=== PATIENT | female | born 1975 | race African-American/Black ===

== ENCOUNTER → 2017-06-05 | Day surgery (SDC) | payer OTHER | END | disposition home or self-care (01) | LOC: JRADIR 09:14 | PROVIDERS: ATTEND Family Medicine | PROC: BU12YZZ Fluoroscopy of Bilateral Fallopian Tubes using Other Contrast (ICD-10-PCS; principal; 2017-06-05) | DX: N97.9 Female infertility, unspecified (principal) | CPT/HCPCS: 58340; 74740-TC; 76000-TC; 84703; Q9967 ==

== ENCOUNTER 2018-09-25 09:00 | Emergency (ER) | payer OTHER ==
[2018-09-25 09:11] VITALS: BP 154/84; PULSE 90; TEMP 98; BMI 33.9
--- NOTE | 2018-09-25 09:26 | PDOC ---
History of Present Illness - General Chief Complaint: Vaginal Bleeding Stated Complaint: BLEEDING Time Seen by Provider: 09/25/18 09:15 History Source: Patient - History of Present Illness Timing/Duration: reports: constant Past History - Past Medical History Allergies/Adverse Reactions: Allergies Allergy/AdvReac Type Severity Reaction Status Date / Time No Known Allergies Allergy Verified 09/25/18 09:09 Home Medications: Ambulatory Orders NK [No Known Home Medication] 05/17/16 COPD: No Seizures: Yes - Immunization History Td Vaccination: Yes Immunization Up to Date: Yes - Suicide/Smoking/Psychosocial Hx Smoking Status: No Smoking History: Never smoked Have you smoked in the past 12 months: No Number of Cigarettes Smoked Daily: 0 Hx Alcohol Use: No Drug/Substance Use Hx: No Substance Use Type: None Review of Systems - Review of Systems Constitutional: No: Chills, Fever ABD/GI: No: Nausea, Vomiting, Abdominal cramping : No: Burning, Dysuria Musculoskeletal: No: Back Pain *Physical Exam - Vital Signs Last Vital Signs Temp Pulse Resp BP Pulse Ox 98.0 F 90 18 154/84 99 09/25/18 09:09 09/25/18 09:09 09/25/18 09:09 09/25/18 09:09 09/25/18 09:09 - Physical Exam General Appearance: Yes: Appropriately Dressed. No: Apparent Distress HEENT: positive: Normal Voice Neck: positive: Supple Respiratory/Chest: negative: Respiratory Distress Gastrointestinal/Abdominal: positive: Soft. negative: Tender Musculoskeletal: negative: CVA Tenderness Integumentary: positive: Dry, Warm Neurologic: positive: Fully Oriented, Alert, Normal Mood/Affect Moderate Sedation - Procedure Monitoring Vital Signs: Procedure Monitoring Vital Signs Temperature 98.0 F 09/25/18 09:09 Pulse Rate 90 09/25/18 09:09 Respiratory Rate 18 09/25/18 09:09 Blood Pressure 154/84 09/25/18 09:09 O2 Sat by Pulse Oximetry (%) 99 09/25/18 09:09 Medical Decision Making - Medical Decision Making 09/25/18 09:15 42 yo F, h/o seizures, , ~3-4 weeks by dates, here w/ vaginal spotting this am, no clots, abd pain, dysuria, n/v/f/c See exam 1st trimester bleed R/o ectopic vs spon AB vs vag bleed in nl preg -T&S -beta -UA -US 09/25/18 10:43 US w/ no e/o w/ beta of 1.1 Pt states home test last week was positive and also told that her beta in VENDING MACHINE ATTENDANT's office last week was also positive. As discussed with ED attending, will dc to follow-up with her VENDING MACHINE ATTENDANT on Thursday. Copy of labs and ultrasound given to patient. Of note, RH + and UA w/ no e/o infxn. *DC/Admit/Observation/Transfer Diagnosis at time of Disposition: Vaginal bleeding - Discharge Dispostion Disposition: HOME Condition at time of disposition: Good - Referrals - Patient Instructions Additional Instructions: Your blood test shows that you are not here and that your ultrasound did not reveal a Follow up with your VENDING MACHINE ATTENDANT on Thursday and discuss labs and further evaluation - Post Discharge Activity
[2018-09-25 10:17] LABS: URINE APPEARANCE CLOUDY; URINE BILIRUBIN NEGATIVE (<2.0 mg/dL); URINE COLOR YELLOW; URINE GLUCOSE (UA) NEGATIVE (NEGATIVE); URINE KETONE NEGATIVE (NEGATIVE); URINE LEUK ESTERASE NEGATIVE (NEGATIVE); URINE NITRITE NEGATIVE (NEGATIVE); URINE PROTEIN 2+ (NEGATIVE); URINE UROBILINOGEN NEGATIVE mg/dL (0.2-1.0)
[2018-09-25 12:19] LABS: EPI CELLS MANY /HPF (FEW); URINE MUCUS FEW
== END 2018-09-25 11:44 | disposition home or self-care (01) ==
LOC: JER 09:00
DX: N93.8 Other specified abnormal uterine and vaginal bleeding (principal); Z86.69 Personal history of other diseases of the nervous system and sense organs
CPT/HCPCS: 36415; 76817-TC; 81003; 81015; 84702; 86850; 86900; 86901; 99282-25

== ENCOUNTER 2018-12-01 21:10 | Emergency (ER) | payer OTHER ==
[2018-12-01 21:14] VITALS: BMI 34.1
--- NOTE | 2018-12-01 23:17 | PDOC ---
History of Present Illness - General Chief Complaint: Pain Stated Complaint: LEFT ARM PAIN History Source: Patient Exam Limitations: No Limitations - History of Present Illness Initial Comments: 12/01/18 23:10 43 yo F here with c/o left arm pain and also co lower abd pelvic pain. 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 states has had left upper arm , muscular pain for 3 days. worse with movement, lifting arm above 90deg. no shoulder pain no elbow pain , pain over bicep. denies f/c no cp no sob. no swelling. no injury that she recalls or trauma. also c/o lower abd / pelvic pain. pt states she had a positive home test 08/2018, then she had scant bleeding in october, and again in november. did not repeat home test. pain is crampy. no vaginal discharge. no dysuria. no other complaints. mild nausea. Past History - Past Medical History Allergies/Adverse Reactions: Allergies Allergy/AdvReac Type Severity Reaction Status Date / Time No Known Allergies Allergy Verified 12/01/18 21:14 Home Medications: Ambulatory Orders Ibuprofen 600 mg PO TID PRN #90 tablet MDD 3 12/02/18 Ibuprofen [Motrin -] 600 mg PO TID PRN #90 tablet 12/02/18 COPD: No Seizures: Yes - Immunization History Td Vaccination: Yes Immunization Up to Date: Yes - Suicide/Smoking/Psychosocial Hx Smoking Status: No Smoking History: Never smoked Have you smoked in the past 12 months: No Number of Cigarettes Smoked Daily: 0 Hx Alcohol Use: No Drug/Substance Use Hx: No Substance Use Type: None Review of Systems - Review of Systems Constitutional: No: See HPI, Chills, Diaphoresis, Fever HEENTM: No: Eye Pain, Blurred Vision Respiratory: No: Cough, Orthopnea Cardiac (ROS): No: Chest Pain, Edema ABD/GI: Yes: Nausea, Abdominal cramping, Other (abd cramping.) : No: Burning, Dysuria All Other Systems: Reviewed and Negative *Physical Exam - Vital Signs Last Vital Signs Temp Pulse Resp BP Pulse Ox 98.9 F 80 18 165/85 100 12/01/18 21:12 12/01/18 21:12 12/01/18 21:12 12/01/18 21:12 12/01/18 21:12 - Physical Exam Comments: 12/01/18 23:13 awake alert lungs clear bilaterally heart rrr no mrg abd soft mild suprapubic ttp. no rebound no guarding. no flank/ cva tenderness. ext wwp left arm ttp over lateral upper arm, and bicep. 5/5 strength bilat upper ext. sensation intact. distally radial, median, ulnar n intact. nueuro alert oriented x 3. ED Treatment Course - LABORATORY CBC & Chemistry Diagram: 12/01/18 23:20 12/01/18 23:23 - RADIOLOGY Radiology Studies Ordered: Category Date Time Status TRANSVAGINAL US PREG [US] Stat Ultrasound 12/01/18 23:06 Ordered Medical Decision Making - Medical Decision Making 12/01/18 23:14 43 yo F with positive home test 2018 , pelvic pain , mild suprapubic ttp. differential , cramps of menses, uti, ovarian cyst, plan ua tvus labs . upper ext muscle strain. tylenol. 12/02/18 01:08 test negative. tvus with bilat ovarian prominant follicles. small ff. no ovarian cyst. no or other abnormalities. labs unremarkable. ua negative for infection. will dc on motrin for left arm pain and fu with ob/ auto service representative and orthopedics. 12/02/18 02:41 xray shoulder and humerus negative. *DC/Admit/Observation/Transfer Diagnosis at time of Disposition: Arm pain - Discharge Dispostion Disposition: HOME Condition at time of disposition: Improved Decision to Admit order: No - Prescriptions Prescriptions: Ibuprofen 600 mg PO TID PRN #90 tablet MDD 3 PRN Reason: Pain Ibuprofen [Motrin -] 600 mg PO TID PRN #90 tablet PRN Reason: Pain - Referrals Referrals: Sydni Fierro NP [Primary Care Provider] - Maricarmen Waters MD [Staff Physician] - Gualberto Sarabia MD [Staff Physician] - - Patient Instructions Printed Discharge Instructions: Muscle Strain, Acute Abdominal Pain Additional Instructions: your ultrasound today is unremarkable. and normal. your labs are also all normal. your urine is negative for any infection. you can take ibuprofen 600 mg every 8 hrs as needed for pain. folllow up with a gas inspector. your test here today is negative. please return for vomiting, fever or any worsening pain or concerns. you can also follow up with an orthopedist if you continue to have pain in your arm beyond one week. - Post Discharge Activity
[2018-12-01 23:34] LABS: BASO % 0.6 % (0-2.0); EOS % 1.6 % (0-4.5); HEMATOCRIT 38.1 % (32.4-45.2); HEMOGLOBIN 12.6 GM/dL (10.7-15.3); LYMPH % 23.2 % (8-40); MCH 30.5 pg (25.7-33.7); MEAN CELL VOLUME 92.2 fl (80-96); MEAN PLT VOLUME 8.2 fl (7.5-11.1); MONO % 7.3 % (3.8-10.2); NEUT % 67.3 % (42.8-82.8); PLATELET COUNT 292 K/MM3 (134-434); RBC 4.13 M/mm3 (3.60-5.2); RDW 13.5 % (11.6-15.6); WHITE BLOOD COUNT 8.3 K/mm3 (4.0-10.0)
[2018-12-01 23:37] LABS: HCG,QUALITATIVE URINE Negative; PH,URINE 5.5 (5.0-8.0); URINE APPEARANCE CLEAR; URINE BILIRUBIN NEGATIVE (NEGATIVE); URINE COLOR YELLOW; URINE GLUCOSE (UA) NEGATIVE (NEGATIVE); URINE KETONE NEGATIVE (NEGATIVE); URINE LEUK ESTERASE NEGATIVE (NEGATIVE); URINE NITRITE NEGATIVE (NEGATIVE); URINE PROTEIN NEGATIVE (NEGATIVE); URINE UROBILINOGEN 0.2 mg/dL (0.2-1.0)
[2018-12-02 00:06] LABS: ALBUMIN 3.3 g/dl (3.4-5.0); ALK PHOS 69 U/L (45-117); ANION GAP 6 MMOL/L (8-16); BILIRUBIN,TOTAL 0.4 mg/dL (0.2-1); BLOOD UREA NITROGEN 10 mg/dL (7-18); CALCIUM 8.8 mg/dL (8.5-10.1); CHLORIDE 105 mmol/L (98-107); CO2 28 mmol/L (21-32); CREATININE 0.7 mg/dL (0.55-1.3); GLUCOSE,RANDOM 96 mg/dL (74-106); POTASSIUM 3.8 mmol/L (3.5-5.1); SGOT/AST 11 U/L (15-37); SGPT/ALT 19 U/L (13-61); SODIUM 139 mmol/L (136-145); TOT PROT 7.6 g/dl (6.4-8.2)
[2018-12-02] MEDS ORDERED: IBUPROFEN 600 MG TABLET (FP) PO ONE ×2 (01:09→01:11)
[2018-12-02 01:54] VITALS: BP 124/86; PULSE 65; TEMP 98.6
== END 2018-12-02 02:57 | disposition home or self-care (01) ==
LOC: JER 21:10
DX: M79.602 Pain in left arm (principal)
CPT/HCPCS: 36415; 73030-TC-LT-FY; 73060-TC-LT-FY; 76830-TC; 80053; 81003; 84702; 84703; 85025; 99282-25

== ENCOUNTER 2019-02-15 16:51 | Emergency (ER) | payer OTHER | END 2019-02-15 22:24 | disposition home or self-care (01) | LOC: JER 16:51 ==

== ENCOUNTER 2019-04-02 16:13 | Inpatient (IN) | payer OTHER ==
--- NOTE | 2019-04-02 17:33 | PDOC ---
History of Present Illness - General Chief Complaint: Pain, Acute Stated Complaint: ABDOMINAL PAIN Time Seen by Provider: 04/02/19 17:33 Past History - Past Medical History Allergies/Adverse Reactions: Allergies Allergy/AdvReac Type Severity Reaction Status Date / Time No Known Allergies Allergy Verified 04/02/19 16:28 Home Medications: Ambulatory Orders NK [No Known Home Medication] 04/02/19 COPD: No Seizures: Yes - Surgical History Abdominal Surgery: Yes - Immunization History Td Vaccination: Yes Immunization Up to Date: Yes - Suicide/Smoking/Psychosocial Hx Smoking Status: No Smoking History: Never smoked Have you smoked in the past 12 months: No Number of Cigarettes Smoked Daily: 0 Hx Alcohol Use: No Drug/Substance Use Hx: No Substance Use Type: None *Physical Exam - Vital Signs Last Vital Signs Temp Pulse Resp BP Pulse Ox 98.3 F 67 14 132/73 100 04/02/19 16:25 04/02/19 16:25 04/02/19 16:25 04/02/19 16:25 04/02/19 16:25 ED Treatment Course - LABORATORY CBC & Chemistry Diagram: 04/02/19 18:33 04/02/19 18:33 Medical Decision Making - Medical Decision Making 04/02/19 17:49 43 year old with a recent history of cholecysitits who presents with 8/10 stabbing periumbilical intermittent abdominal pain radiaint to hte R side of the abdomen ongoing for 2 weeks, initially improving but worse today, started at 12:30. The patinet took a Tylenol at 1330 without releif. She admits to some nausea but denies vomiting. She was previously seen in this ED for abdominal complaints approx 1.5 months ago where she was found to have cholecystits w/ cholelithiasis and was discharged with surgery f.u. She reports she was seen by surgery who wanted her to complete a course of antibiotics prior to going to the OR. She reports improvemnt of pain with antibiotics for the past week but recurrence today. Prior CTAP showed cholelithiasis and borderline GB wall thickening, equivocal for cholecystitis, patient had requested to d/c home for outpt f.u at that time ROS GENERAL/CONSTITUTIONAL: No fever or chills. No weakness. HEAD, EYES, EARS, NOSE AND THROAT: No change in vision. No ear pain or discharge. No sore throat. CARDIOVASCULAR: No chest pain or shortness of breath RESPIRATORY: No cough, wheezing, or hemoptysis. GASTROINTESTINAL: No nausea, vomiting, diarrhea or constipation. GENITOURINARY: No dysuria, frequency, or change in urination. MUSCULOSKELETAL: No joint or muscle swelling or pain. No neck or back pain. SKIN: No rash NEUROLOGIC: No headache, vertigo, loss of consciousness, or change in strength/ sensation. ENDOCRINE: No increased thirst. No abnormal weight change HEMATOLOGIC/LYMPHATIC: No anemia, easy bleeding, or history of blood clots. ALLERGIC/IMMUNOLOGIC: No hives or skin allergy. PE GENERAL: Awake, alert, and fully oriented, in no acute distress HEAD: No signs of trauma, normocephalic, atraumatic EYES: EOMI, sclera anicteric, conjunctiva clear ENT: oropharynx clear without exudates. Moist mucosa NECK: Normal ROM, supple LUNGS: No distress, speaks full sentences, clear to auscultation bilaterally HEART: Regular rate and rhythm, normal S1 and S2, no murmurs, rubs or gallops, peripheral pulses normal and equal bilaterally. ABDOMEN: Soft, + baker's + periumbilical tenderness, RLQ > LLQ tenderness. No guarding, no rebound. No masses EXTREMITIES : Normal inspection, Normal range of motion, no edema. No clubbing or cyanosis. NEUROLOGICAL: Cranial nerves II through XII grossly intact. Normal speech, normal gait, no focal sensorimotor deficits SKIN: Warm, Dry, normal turgor, no rashes or lesions noted MDM 43 year old with a recent history of cholecysitits who presents with 8/10 stabbing periumbilical intermittent abdominal pain radiaint to hte R side of the abdomen ongoing for 2 weeks, initially improving but worse today, started at 12:30. DDX including but not limited to: cholecyitis vs appendicits r/o pancreatitis r/o ovarian torsion W/U: - cbc, cmp, lipase, beta, ct abd pelvis TX: - tylenol, ivf ED Course: CT AP: acute cholecystitits Dose zosyn, Formal ABd US ordered Gen surgery Dr. Carlos arnett Case discussed with Dr. Gonzalez, agrees to admission and consult. Will see patient plan for admission Rashida Lagos, PGY2 Emergency Medicine *DC/Admit/Observation/Transfer Diagnosis at time of Disposition: Acute cholecystitis - Discharge Dispostion Condition at time of disposition: Stable Decision to Admit order: Yes - Referrals - Patient Instructions - Post Discharge Activity
[2019-04-02] MEDS ORDERED: ACETAMINOPHEN 1000 MG/100 ML VIAL (NON FORMULARY) IVPB ONE (17:53)
[2019-04-02] MEDS ORDERED: SODIUM CHLORIDE 1,000 ML IV SCH (18:00)
[2019-04-02] MEDS ORDERED: morphine CARPU-JECT 4 MG/1 ML DISP.SYRIN IVPUSH ONE (18:09)
[2019-04-02] MEDS ORDERED: morphine SULFATE 4 MG/ML VIAL ONE (18:21)
[2019-04-02] MEDS ORDERED: ACETAMINOPHEN INJECTION 100 ML IVPB ONE (18:21)
[2019-04-02] MEDS ORDERED: ONDANSETRON 4 MG/2 ML VIAL IVPUSH ONE (18:31)
[2019-04-02] MEDS ORDERED: ONDANSETRON 4 MG/2 ML VIAL ONE (18:37)
[2019-04-02 18:47] LABS: BASO % 0.6 % (0-2.0); EOS % 4.7 % (0-4.5); HEMATOCRIT 35.5 % (32.4-45.2); HEMOGLOBIN 11.8 GM/dL (10.7-15.3); MCH 30.8 pg (25.7-33.7); MCHC 33.3 g/dl (32.0-36.0); MEAN CELL VOLUME 92.5 fl (80-96); MEAN PLT VOLUME 8.6 fl (7.5-11.1); MONO % 10.5 % (3.8-10.2); NEUT % 53.2 % (42.8-82.8); PLATELET COUNT 262 K/MM3 (134-434); RBC 3.84 M/mm3 (3.60-5.2); RDW 13.8 % (11.6-15.6); WHITE BLOOD COUNT 7.5 K/mm3 (4.0-10.0)
--- NOTE | 2019-04-02 18:48 | PDOC ---
Documentation entered by Keri Villegas SCRIBE, acting as scribe for Gloria Rivera MD. Gloria Rivera MD: This documentation has been prepared by the jaymeibe, Keri Villegas SCRIBE, under my direction and personally reviewed by me in its entirety. I confirm that the documentation accurately reflects all work, treatment, procedures, and medical decision making performed by me. Attending Attestation - Resident Resident Name: Rashida Lagos - ED Attending Attestation I have performed the following: I have examined & evaluated the patient, The case was reviewed & discussed with the resident, I agree w/resident's findings & plan, Exceptions are as noted - HPI HPI: 04/02/19 18:39 Ms Nicolas is a 43 yo F who presents to the ER with a complaint of abdominal pain Pt was seen in the ER on February 15 for abdominal pain, US at that time demonstrated non specific gallbladder wall thickening with a normal CBD Pt was seen by dr Gonzalez in follow up and was told that her gall bladder was too big to be removed She was therefore started on abx which she took for a total of 10 days Pt state she was feeling better while on antibiotics but since completing the course of antibiotics, she has noted intermittent abdominal pain, despite diet modifications (no fatty, no fried foods, she is only having noodle soup, today had a bagel with nothing else) Nausea today No vomiting No diarrhea No fevers, (+) chills 04/02/19 18:43 - Physicial Exam PE: 04/02/19 18:29 GENERAL: The patient appears to be in pain ENT: Moist mucous membranes. NECK: Normal range of motion, supple LUNGS: Breath sounds equal, clear to auscultation bilaterally. No wheezes, and no crackles. HEART:Regular rate and rhythm, normal S1 and S2 without murmur, rub or gallop. ABDOMEN: Soft, tender to palpation in the right upper quadrant, lower quadrant and joe umbilical area EXTREMITIES: Normal range of motion, no edema. NEUROLOGICAL: Cranial nerves II through XII grossly intact. Normal speech. No focal neurological deficits. SKIN: Warm, Dry, normal turgor, no rashes or lesions noted. 04/02/19 18:30 04/02/19 18:46 - Medical Decision Making 04/02/19 18:47 43 yo F presenting with a complaint of abdominal pain, nausea Pt has had a prior history of biliary colic DD: biliary colic, cholecystitis, appendicitis, sbo Will do: Labs CT Analgesia IVF Antiemetics Re Assess 04/02/19 20:15 CT: Scattered groundglass opacities in the lung base may represent atelectasis. The gallbladder is hydropic with heterogeneous enhancement of the gallbladder wall a suggestion of pericholecystic fluid. No intrahepatic or significant extra hepatic ductal dilatation. Solid organs and urinary bladder within normal limits. Pelvic reproductive organs without acute abnormality. No acute abnormalities of the bowel. Appendix is normal. Postsurgical changes suggestive of prior appendectomy. IMPRESSION: Hydropic gallbladder with wall thickening/pericholecystic fluid and sludge and/or stones concerning for acute cholecystitis. Recommend right upper quadrant ultrasound for further evaluation. Will order US 04/02/19 20:16 Will order zosyn 04/02/19 22:[address] Gonzalez Pt admitted to hospitalist service 04/02/19 23:02 EKG: NSR rate of 65 bpm, axis nml, no st elevation or depressions noted, t waves upright except III *DC/Admit/Observation/Transfer Diagnosis at time of Disposition: Acute cholecystitis - Discharge Dispostion Condition at time of disposition: Stable Decision to Admit order: Yes - Referrals - Patient Instructions - Post Discharge Activity
[2019-04-02 19:15] LABS: ALBUMIN 3.2 g/dl (3.4-5.0); BILIRUBIN,TOTAL 0.3 mg/dL (0.2-1); CALCIUM 8.8 mg/dL (8.5-10.1); CREATININE 0.7 mg/dL (0.55-1.3); POTASSIUM 3.5 mmol/L (3.5-5.1); TOT PROT 6.8 g/dl (6.4-8.2)
[2019-04-02 19:19] LABS: LIPASE 104 U/L (73-393)
[2019-04-02] MEDS ORDERED: PIPERACILLIN/TAZOB 4.5 GM 4.5 GM in DEXTROSE 5%-WATER 100 ML IVPB ONE (20:16)
[2019-04-02] MEDS ORDERED: METOCLOPRAMIDE HCL INJECTION 10 MG/2 ML VIAL IVPUSH ONE (20:28)
[2019-04-02] MEDS ORDERED: PIPERACILLIN/TAZOB 4.5 GM 4.5 GM/100 ML BAG IVPB ONE (20:29)
[2019-04-02] MEDS ORDERED: METOCLOPRAMIDE HCL INJECTION 10 MG/2 ML VIAL ONE (20:30)
[2019-04-02] MEDS ORDERED: ACETAMINOPHEN 1000 MG/100 ML VIAL (NON FORMULARY) IVPB PRN (22:05)
--- NOTE | 2019-04-02 22:18 | PN ---
Teaching Attending Note Name of Resident: Vinicio Markham ATTENDING PHYSICIAN STATEMENT I saw and evaluated the patient. I reviewed the resident's note and discussed the case with the resident. I agree with the resident's findings and plan as documented. Seen and examined; please refer to resident note for further historical information. Briefly, this is a 43 y/o female presenting to the ER for abdominal pain. She is afebrile and hemodynamically stable without WBC count. VS, labs, imaging reviewed NAD, AAO, resting in bed NC AT EOMI PERRLA RRR s1/2 Lungs CTAB NT ND +BS CN2-12 wnl, no fnd EKG reviewed CXR shows Prelim CT report states suspected cholecystitis Prelim US report states GB wall thickening suspicious for cholecystitis ASSESSMENT AND PLAN: Patient presents with abdominal pain suspicious for acute cholecystitis; admitting to medicine and consulting sgjuly
[2019-04-02] MEDS: LACTATED RINGERS SOLUTION 1,000 ML/1,000 ML INFUS.BAG IV SCH (22:20)
[2019-04-02 22:27] LABS: PH,URINE 7.5 (5.0-8.0); URINE APPEARANCE CLEAR; URINE BILIRUBIN NEGATIVE (NEGATIVE); URINE COLOR YELLOW; URINE GLUCOSE (UA) NEGATIVE (NEGATIVE); URINE KETONE NEGATIVE (NEGATIVE)
[2019-04-02 22:28] LABS: URINE LEUK ESTERASE NEGATIVE (NEGATIVE); URINE NITRITE NEGATIVE (NEGATIVE); URINE PROTEIN NEGATIVE (NEGATIVE)
[2019-04-02] MEDS ORDERED: SENNOSIDES 8.6MG TABLET (FP) PO PRN (22:39)
[2019-04-02] MEDS ORDERED: ACETAMINOPHEN 325 MG TABLET (FP) PO PRN (22:39)
[2019-04-03 00:31] VITALS: BMI 32.5
[2019-04-03] MEDS ORDERED: DEXTROSE 5%-WATER 100 ML IVPB ONE ×2 (02:52→08:44)
[2019-04-03] MEDS ORDERED: PIPERACILLIN/TAZOBACTAM 4.5 GM VIAL IVPB ONE ×2 (02:52→08:44)
[2019-04-03] MEDS: PIPERACILLIN/TAZOB 4.5 GM 4.5 GM in DEXTROSE 5%-WATER 100 ML IVPB SCH ×2 (03:07→10:22)
--- NOTE | 2019-04-03 06:32 | HP ---
CHIEF COMPLAINT: RUQ abdominal pain PCP: Dr. Garcia (first name) didnt remember last name HISTORY OF PRESENT ILLNESS: This is a 43 y/o F with no PMH who presents to the ED with severe adominal pain localized to the RUQ for over a month. She saw Dr. Gonzalez 2 weeks ago for evaluation for cholecystectomy but he said it was too big to remove at that time and sent her home on abx. She does not recall the name of the abx but she did take them as prescribed. Dr. Gonzalez has been made aware of this and will eval in the AM. Pt endorsed that the pain is associated with bending down and gets better when she sits up. Denies any vomiting, fever, nausea, dysuria, cp, sob. Last BM yesterday, passing gas. Her LMP was 1 mth ago and it was for one day. She denies any sick contacts or recent travel. ER course was notable for: (1) Lipase- 104, HCG negative (2) UA negative except >1 specific gravity (3) Recent Travel: none PAST MEDICAL HISTORY: none PAST SURGICAL HISTORY: 3 c sections, Tubal ligation and reversal. Social History: Smoking: denies Alcohol: denies Drugs: denies Family History: none pertinent Allergies No Known Allergies Allergy (Verified 04/02/19 16:28) HOME MEDICATIONS: Home Medications Medication Instructions Recorded NK [No Known Home Medication] 04/02/19 REVIEW OF SYSTEMS Negative except in HPI PHYSICAL EXAMINATION Vital Signs - 24 hr 04/02/19 04/02/19 04/02/19 16:25 20:20 23:03 Temperature 98.3 F 98.1 F 97.8 F Pulse Rate 67 Pulse Rate [ 64 68 Left Radial] Respiratory 14 20 16 Rate Blood Pressure 132/73 Blood Pressure 121/76 120/61 [Left Arm] O2 Sat by Pulse 100 100 96 Oximetry (%) 04/03/19 04/03/19 00:26 00:59 Temperature 97.8 F Pulse Rate 71 Pulse Rate [ Left Radial] Respiratory 18 18 Rate Blood Pressure 146/79 Blood Pressure [Left Arm] O2 Sat by Pulse 98 Oximetry (%) GENERAL: Awake, alert, and fully oriented, in no acute distress. HEAD: Normal with no signs of trauma. NECK: Normal range of motion, supple LUNGS: Breath sounds equal, clear to auscultation bilaterally. No wheezes, and no crackles. No accessory muscle use. HEART: Regular rate and rhythm, normal S1 and S2 without murmur, rub or gallop. ABDOMEN: Soft, tender in RUQ, non-distended, normoactive bowel sounds, no guarding, no rebound, no masses. MUSCULOSKELETAL: Normal range of motion at all joints. No bony deformities or tenderness. LOWER EXTREMITIES: 2+ pulses, warm, well-perfused. No peripheral edema. NEUROLOGICAL: Cranial nerves II-XII intact. Normal speech. Normal gait. PSYCHIATRIC: Cooperative. Good eye contact. Appropriate mood and affect. SKIN: Warm, dry, no rashes or lesions noted. Laboratory Results - last 24 hr 04/02/19 04/02/19 04/02/19 18:33 18:33 18:33 WBC 7.5 RBC 3.84 Hgb 11.8 Hct 35.5 MCV 92.5 MCH 30.8 MCHC 33.3 RDW 13.8 Plt Count 262 MPV 8.6 Absolute Neuts (auto) 4.0 Neutrophils % 53.2 Lymphocytes % 31.0 Monocytes % 10.5 H Eosinophils % 4.7 H Basophils % 0.6 Nucleated RBC % 0 Sodium 143 Potassium 3.5 Chloride 109 H Carbon Dioxide 28 Anion Gap 6 L BUN 9.0 Creatinine 0.7 Est GFR (CKD-EPI)AfAm 124.73 Est GFR (CKD-EPI)NonAf 107.62 Random Glucose 101 Calcium 8.8 Total Bilirubin 0.3 AST 13 L ALT 21 Alkaline Phosphatase 70 Total Protein 6.8 Albumin 3.2 L Lipase 104 Beta HCG, Quant < 1.0 Urine Color Urine Appearance Urine pH Ur Specific [place] Urine Protein Urine Glucose (UA) Urine Ketones Urine Blood Urine Nitrite Urine Bilirubin Urine Urobilinogen Ur Leukocyte Esterase 04/02/19 21:00 WBC RBC Hgb Hct MCV MCH MCHC RDW Plt Count MPV Absolute Neuts (auto) Neutrophils % Lymphocytes % Monocytes % Eosinophils % Basophils % Nucleated RBC % Sodium Potassium Chloride Carbon Dioxide Anion Gap BUN Creatinine Est GFR (CKD-EPI)AfAm Est GFR (CKD-EPI)NonAf Random Glucose Calcium Total Bilirubin AST ALT Alkaline Phosphatase Total Protein Albumin Lipase Beta HCG, Quant Urine Color Yellow Urine Appearance Clear Urine pH 7.5 D Ur Specific [place] 1.059 H Urine Protein Negative Urine Glucose (UA) Negative Urine Ketones Negative Urine Blood Negative Urine Nitrite Negative Urine Bilirubin Negative Urine Urobilinogen 1.0 Ur Leukocyte Esterase Negative ASSESSMENT/PLAN: Images: Prelim CT report states suspected cholecystitis Prelim US report states GB wall thickening suspicious for cholecystitis This is a 43 y/o F with no PMH who presents with RUQ abdominal pain suspicious for acute cholecystitis given her recent finding with Dr. Gonzalez of enlarged gall bladder. #Abdominal pain - 2/2 to acute cholelithiasis no cholecystitis at this time. - Surgery consulted (Dr. Gonzalez) will evaluate for cholecystectomy - pain control - NPO - IV fluids Visit type - Emergency Visit Emergency Visit: Yes ED Registration Date: 04/02/19 Care time: The patient presented to the Emergency Department on the above date and was hospitalized for further evaluation of their emergent condition. - New Patient This patient is new to me today: Yes Date on this admission: 04/04/19 - Critical Care Critical Care patient: No ATTENDING PHYSICIAN STATEMENT I saw and evaluated the patient. I reviewed the resident's note and discussed the case with the resident. I agree with the resident's findings and plan as documented. SUBJECTIVE: OBJECTIVE: ASSESSMENT AND PLAN:
[2019-04-03 08:14] LABS: HEMATOCRIT 34.1 % (32.4-45.2); HEMOGLOBIN 11.3 GM/dL (10.7-15.3); MCH 30.6 pg (25.7-33.7); MEAN CELL VOLUME 92.7 fl (80-96); MEAN PLT VOLUME 8.6 fl (7.5-11.1); PLATELET COUNT 269 K/MM3 (134-434); RBC 3.68 M/mm3 (3.60-5.2); RDW 13.8 % (11.6-15.6)
[2019-04-03 08:28] LABS: ALBUMIN 2.9 g/dl (3.4-5.0); BILIRUBIN,TOTAL 0.6 mg/dL (0.2-1); BLOOD UREA NITROGEN 5.4 mg/dL (7-18); CALCIUM 8.3 mg/dL (8.5-10.1); CREATININE 0.8 mg/dL (0.55-1.3); MAGNESIUM 1.9 mg/dL (1.8-2.4); POTASSIUM 3.4 mmol/L (3.5-5.1); TOT PROT 6.2 g/dl (6.4-8.2)
--- NOTE | 2019-04-03 13:41 | CONSULT ---
Consult Consult Specialty:: Surgery Reason for Consultation:: Acute cholecystitis - History of Present Illness Chief Complaint: RUQ abdominal pain History of Present Illness: 43 yo F who presents to the ER with a complaint of abdominal pain x 2 days Pt was seen in the ER on February 15 for abdominal pain, US at that time demonstrated non specific gallbladder wall thickening with a normal CBD Pt was seen by undersigned on 03/11/19 and advised interval cholecystectomy 6 - 8 weeks after the attack She was started on abx which she took for a total of 10 days Pt state she was feeling better while on antibiotics but since completing the course of antibiotics, she has noted intermittent abdominal pain, despite diet modifications (no fatty, no fried foods, she is only having noodle soup, today had a bagel with nothing else) Nausea today No vomiting No diarrhea No fevers, (+) chills - History Source History Provided By: Patient - Past Medical History ...LMP: 03/23/19 ...: No - Alcohol/Substance Use Hx Alcohol Use: No - Smoking History Smoking history: Never smoked Have you smoked in the past 12 months: No Aproximately how many cigarettes per day: 0 Home Medications - Allergies Allergies/Adverse Reactions: Allergies Allergy/AdvReac Type Severity Reaction Status Date / Time No Known Allergies Allergy Verified 04/02/19 16:28 - Home Medications Home Medications: Ambulatory Orders NK [No Known Home Medication] 04/02/19 Review of Systems - Review of Systems Eyes: reports: No Symptoms HENT: reports: No Symptoms Neck: reports: No Symptoms Cardiovascular: reports: No Symptoms Respiratory: reports: No Symptoms Gastrointestinal: reports: Abdominal Pain (RUQ) Genitourinary: reports: No Symptoms Neurological: reports: No Symptoms Physical Exam Vital Signs: Vital Signs Temperature 98.3 F 04/03/19 06:00 Pulse Rate 65 04/03/19 06:00 Respiratory Rate 18 04/03/19 09:00 Blood Pressure 110/60 04/03/19 06:00 O2 Sat by Pulse Oximetry (%) 98 04/03/19 09:00 Constitutional: Yes: Well Nourished Eyes: Yes: Conjunctiva Clear HENT: Yes: Normocephalic Neck: Yes: Supple Cardiovascular: Yes: Regular Rate and Rhythm Respiratory: Yes: Regular, CTA Bilaterally Gastrointestinal: Yes: Soft, Tenderness (RUQ and umbilical) Labs: CBC, BMP 04/03/19 07:30 04/03/19 07:30 Imaging - Results Cat Scan: Report Reviewed, Image Reviewed Ultrasound: Report Reviewed, Image Reviewed Problem List - Problems (1) Acute cholecystitis Assessment/Plan: F/U HIDA SCAN FOR EVENTUAL CHOLECYSTECTOMY ON THIS HOSPITAL STAY Code(s): K81.0 - ACUTE CHOLECYSTITIS
--- NOTE | 2019-04-03 14:14 | PN ---
Physical Exam: SUBJECTIVE: Patient seen and examined, She is in no distress at this time OBJECTIVE: Vital Signs Period Temp Pulse Resp BP Sys/You Pulse Ox Last 24 Hr 97.8 F-98.3 F 64-71 14-20 110-146/60-79 96-100 GENERAL: The patient is awake, alert, and fully oriented, in no acute distress. HEAD: Normal with no signs of trauma. EYES: PERRL, extraocular movements intact, sclera anicteric, conjunctiva clear. No ptosis. ENT: Ears normal, nares patent, oropharynx clear without exudates, moist mucous membranes. NECK: Trachea midline, full range of motion, supple. LUNGS: Breath sounds equal, clear to auscultation bilaterally, no wheezes, no crackles, no accessory muscle use. HEART: Regular rate and rhythm, S1, S2 without murmur, rub or gallop. ABDOMEN: Sfot, BS+ has suprapubic and RLQ tenderness and less tenderness in the RUQ. EXTREMITIES: 2+ pulses, warm, well-perfused, no edema. NEUROLOGICAL: Cranial nerves II through XII grossly intact. Normal speech, gait not observed. PSYCH: Normal mood, normal affect. SKIN: Warm, dry, normal turgor, no rashes or lesions noted Laboratory Results - last 24 hr 04/02/19 04/02/19 04/02/19 18:33 18:33 18:33 WBC 7.5 RBC 3.84 Hgb 11.8 Hct 35.5 MCV 92.5 MCH 30.8 MCHC 33.3 RDW 13.8 Plt Count 262 MPV 8.6 Absolute Neuts (auto) 4.0 Neutrophils % 53.2 Lymphocytes % 31.0 Monocytes % 10.5 H Eosinophils % 4.7 H Basophils % 0.6 Nucleated RBC % 0 Sodium 143 Potassium 3.5 Chloride 109 H Carbon Dioxide 28 Anion Gap 6 L BUN 9.0 Creatinine 0.7 Est GFR (CKD-EPI)AfAm 124.73 Est GFR (CKD-EPI)NonAf 107.62 Random Glucose 101 Calcium 8.8 Magnesium Total Bilirubin 0.3 AST 13 L ALT 21 Alkaline Phosphatase 70 Total Protein 6.8 Albumin 3.2 L Lipase 104 Beta HCG, Quant < 1.0 Urine Color Urine Appearance Urine pH Ur Specific [place] Urine Protein Urine Glucose (UA) Urine Ketones Urine Blood Urine Nitrite Urine Bilirubin Urine Urobilinogen Ur Leukocyte Esterase 04/02/19 04/03/19 04/03/19 21:00 07:30 07:30 WBC 5.0 RBC 3.68 Hgb 11.3 Hct 34.1 MCV 92.7 MCH 30.6 MCHC 33.0 RDW 13.8 Plt Count 269 MPV 8.6 Absolute Neuts (auto) Neutrophils % Lymphocytes % Monocytes % Eosinophils % Basophils % Nucleated RBC % Sodium 143 Potassium 3.4 L Chloride 108 H Carbon Dioxide 29 Anion Gap 6 L BUN 5.4 L Creatinine 0.8 Est GFR (CKD-EPI)AfAm 106.13 Est GFR (CKD-EPI)NonAf 91.57 Random Glucose 84 Calcium 8.3 L Magnesium 1.9 Total Bilirubin 0.6 AST 14 L ALT 20 Alkaline Phosphatase 58 Total Protein 6.2 L Albumin 2.9 L Lipase Beta HCG, Quant Urine Color Yellow Urine Appearance Clear Urine pH 7.5 D Ur Specific [place] 1.059 H Urine Protein Negative Urine Glucose (UA) Negative Urine Ketones Negative Urine Blood Negative Urine Nitrite Negative Urine Bilirubin Negative Urine Urobilinogen 1.0 Ur Leukocyte Esterase Negative Active Medications Generic Name Dose Route Start Last Admin Trade Name Rejiq PRN Reason Stop Dose Admin Acetaminophen 650 mg 04/02/19 22:05 04/03/19 08:55 Ofirmev Injection - IVPB 650 mg Q4H PRN Administration PAIN LEVEL 6-10 Lactated Ringer's 1,000 ml in 1,000 mls @ 100 mls/hr 04/02/19 22:15 04/02/19 22:20 Lactated Ringers Solution IV 100 mls/hr ASDIR JEFFREY Administration Piperacillin Sod/Tazobactam 100 mls @ 200 mls/hr 04/03/19 15:00 Sod 4.5 gm/ Dextrose IVPB Q6H-IV JEFFREY Protocol ASSESSMENT/PLAN: She is an obese F with known cholelitiasis, P/W 1 month of intermittent preiumblical and suprapubic pain and tenderness accompanied with dysparunia which no other /GI complaints. States that pain is cramping or some times sharp , no trigger, worse with laying back and improves with sitting up, pain some times improves with tylenol but not all the time. as the pain was so sever she came to the hospital. last LMP 3 weeks ago. Also has epiasgtric pain which is mild and is related with food sometimes. Abdominal pain: suprapubic one most likely due to the ovarian cysts, which should be followed OBGYN RUQ pain: cholelithiasis , no cholecystitis at this time. Will undergo chlecystectomy tomorrow Pain management: tylenol Diet: clear liquid diet DVT PPXl HEPARIN FC Visit type - Emergency Visit Emergency Visit: Yes ED Registration Date: 04/02/19 Care time: The patient presented to the Emergency Department on the above date and was hospitalized for further evaluation of their emergent condition. - New Patient This patient is new to me today: Yes Date on this admission: 04/03/19 - Critical Care Critical Care patient: No - Discharge Referral Referred to [facility] Med P.C.: No
--- NOTE | 2019-04-03 14:19 | EKG ---
Test Reason : Blood Pressure : / mmHG Vent. Rate : 065 BPM Atrial Rate : 065 BPM P-R Int : 154 ms QRS Dur : 084 ms QT Int : 428 ms P-R-T Axes : 053 020 020 degrees QTc Int : 445 ms NORMAL SINUS RHYTHM POSSIBLE LEFT ATRIAL ENLARGEMENT BORDERLINE ECG WHEN COMPARED WITH ECG OF 27-JAN-2012 12:46, NO SIGNIFICANT CHANGE WAS FOUND Confirmed by MD Villa, Jose ([id number]) on 04/03/2019 2:19:21 PM Referred By: Confirmed By:Jose Driver MD
[2019-04-04] MEDS: LACTATED RINGERS SOLUTION 1,000 ML/1,000 ML INFUS.BAG IV SCH ×2 (05:33→15:50)
--- NOTE | 2019-04-04 07:37 | PN ---
Physical Exam: SUBJECTIVE: Patient seen and examined by the bedside, AO3 OBJECTIVE: Vital Signs Period Temp Pulse Resp BP Sys/You Pulse Ox Last 24 Hr 98.3 F-98.9 F 60-63 18-20 103-147/60-92 98-98 GENERAL: The patient is awake, alert, and fully oriented, in no acute distress. HEAD: Normal with no signs of trauma. EYES: PERRL, extraocular movements intact, sclera anicteric, conjunctiva clear. No ptosis. ENT: Ears normal, nares patent, oropharynx clear without exudates, moist mucous membranes. NECK: Trachea midline, full range of motion, supple. LUNGS: Breath sounds equal, clear to auscultation bilaterally, no wheezes, no crackles, no accessory muscle use. HEART: Regular rate and rhythm, S1, S2 without murmur, rub or gallop. ABDOMEN: Soft, nondistended, RUQ tenderness, hypoactive bowel sounds, no guarding, no rebound, no hepatosplenomegaly, no masses. EXTREMITIES: 2+ pulses, warm, well-perfused, no edema. NEUROLOGICAL: Cranial nerves II through XII grossly intact. Normal speech, gait not observed. PSYCH: Normal mood, normal affect. SKIN: Warm, dry, normal turgor, no rashes or lesions noted Laboratory Results - last 24 hr 04/03/19 04/03/19 07:30 07:30 WBC 5.0 RBC 3.68 Hgb 11.3 Hct 34.1 MCV 92.7 MCH 30.6 MCHC 33.0 RDW 13.8 Plt Count 269 MPV 8.6 Sodium 143 Potassium 3.4 L Chloride 108 H Carbon Dioxide 29 Anion Gap 6 L BUN 5.4 L Creatinine 0.8 Est GFR (CKD-EPI)AfAm 106.13 Est GFR (CKD-EPI)NonAf 91.57 Random Glucose 84 Calcium 8.3 L Magnesium 1.9 Total Bilirubin 0.6 AST 14 L ALT 20 Alkaline Phosphatase 58 Total Protein 6.2 L Albumin 2.9 L Active Medications Generic Name Dose Route Start Last Admin Trade Name Freq PRN Reason Stop Dose Admin Acetaminophen 650 mg 04/02/19 22:05 04/03/19 08:55 Ofirmev Injection - IVPB 650 mg Q4H PRN Administration PAIN LEVEL 6-10 Lactated Ringer's 1,000 ml in 1,000 mls @ 100 mls/hr 04/02/19 22:15 04/04/19 05:33 Lactated Ringers Solution IV 100 mls/hr ASDIR JEFFREY Administration Piperacillin Sod/Tazobactam 100 mls @ 200 mls/hr 04/03/19 15:00 Sod 4.5 gm/ Dextrose IVPB Q6H-IV JEFFREY Protocol ASSESSMENT/PLAN: 43 year old female with PMH significant for ,presented to the ER with recurrent RUQ crampy abdominal pain for the past 2 days, worse with laying back and improves with sitting up. Last seen in the ER 02/15, US showed non specific GB thickening with a normal CBD. Was prescribed 10 days of Augmentin, and was advised cholecystectomy in 6 - 8 weeks. Presented with nausea, but no vomiting diarrhea, fevers, or chills. #RUQ Pain - Cholecystectomy today - Continue IV Zosyn (started in ER) - ID consult: cont IV Zosyn - Blood cx: pending - Urine cx: normal ricardo - Ofiramev for pain #FEN - R/L @ 100 - NPO for surgery #DVT - SCD Visit type - Emergency Visit Emergency Visit: Yes ED Registration Date: 04/02/19 Care time: The patient presented to the Emergency Department on the above date and was hospitalized for further evaluation of their emergent condition. - New Patient This patient is new to me today: No - Critical Care Critical Care patient: No - Discharge Referral Referred to [facility] Med P.C.: No ATTENDING PHYSICIAN STATEMENT I saw and evaluated the patient. I reviewed the resident's note and discussed the case with the resident. I agree with the resident's findings and plan as documented. SUBJECTIVE: OBJECTIVE: ASSESSMENT AND PLAN:
--- NOTE | 2019-04-04 07:54 | PN ---
Teaching Attending Note Name of Resident: Anival Kearns ATTENDING PHYSICIAN STATEMENT I saw and evaluated the patient. I reviewed the resident's note and discussed the case with the resident. I agree with the resident's findings and plan as documented. SUBJECTIVE: Mild Rt UQ pain OBJECTIVE: Vital Signs Temperature 98.3 F 04/03/19 18:00 Pulse Rate 63 04/03/19 23:00 Respiratory Rate 20 04/03/19 23:00 Blood Pressure 103/60 04/03/19 23:00 O2 Sat by Pulse Oximetry (%) 98 04/03/19 21:00 HEENT: Mm moist, no anemia, PERRLA EOMI NECK: no JVD No bruit CHEST: CTA B/L CVS: s1S2 r no m/g/r ABD: no distention Mild Rt UQ/epigastric tenderness tender Bs + EXT: No buffy afeet, no calf tenderness SHEET FED PRINTER: AOX3 non focal CBC, BMP 04/03/19 07:30 04/03/19 07:30 Active Medications Acetaminophen (Ofirmev Injection -) 650 mg IVPB Q4H PRN PRN Reason: PAIN LEVEL 6-10 Last Admin: 04/03/19 08:55 Dose: 650 mg Lactated Ringer's (Lactated Ringers Solution) 1,000 ml in 1,000 mls @ 100 mls/ hr IV ASDIR JEFFREY Last Admin: 04/04/19 05:33 Dose: 100 mls/hr Piperacillin Sod/Tazobactam (Sod 4.5 gm/ Dextrose) 100 mls @ 200 mls/hr IVPB Q6H-IV JEFFREY; Protocol ASSESSMENT AND PLAN:43 yrs old F admitted with acutecholycystitis normal TWBC afebrile normal LFTs schedule for Cholysytectomy Cont Current management Abx as per ID.
[2019-04-04 07:58] LABS: INR 1.16 (0.83-1.09); PROTHROMBIN TIME (PATIENT) 13.7 SEC (9.7-13.0)
--- NOTE | 2019-04-04 10:42 | PN ---
Progress Note (short form) - Note Progress Note: ID consult dictated imp/reccd otherwise healthy 43 yo female with recurrent RUQ pain seen in ED 02/15- discharged to f/u with surgery- saw dr Gonzalez and was prescribed Augmentin bid for 10 days which she completed 3 days ago the pain recurred 04/02 and she came back to the ED no fevers nausea +chills scheduled for cholycystectomy today no fevers, normal WBC continue zosyn started in the ED f/u for antibiotic duration per surgery (Dr GONZALEZ) Problem List - Problems (1) Acute cholecystitis Code(s): K81.0 - ACUTE CHOLECYSTITIS
[2019-04-04] MEDS ORDERED: PIPERACILLIN/TAZOB 4.5 GM 4.5 GM in DEXTROSE 5%-WATER 100 ML IVPB SCH (11:00)
[2019-04-04] MEDS ORDERED: PIPERACILLIN/TAZOBACTAM 4.5 GM VIAL IVPB ONE ×3 (11:04→20:40)
[2019-04-04] MEDS ORDERED: DEXTROSE 5%-WATER 100 ML IVPB ONE ×2 (11:04→20:40)
[2019-04-04] MEDS ORDERED: BUPIVACAINE HCL/PF 0.5% (5 MG/ML) 30 ML VIAL IJ ONE ×3 (11:21→13:05)
[2019-04-04] MEDS ORDERED: PROPOFOL 20 ML ONE ×2 (12:21)
[2019-04-04] MEDS ORDERED: SUCCINYLCHOLINE CHLORIDE 200 MG/10 ML SYRINGE ONE (12:21)
[2019-04-04] MEDS ORDERED: MIDAZOLAM HCL 2 MG/2 ML SINGLE DOSE VIAL ONE (12:21)
[2019-04-04] MEDS ORDERED: ROCURONIUM BROMIDE 50 MG/5 ML SYRINGE ONE (12:27)
[2019-04-04] MEDS ORDERED: LIDOCAINE HCL/PF 2% SDV 5ML VIAL ONE (12:42)
[2019-04-04] MEDS ORDERED: DEXAMETHASONE SOD PHOSPHATE 4 MG/1 ML VIAL ONE (13:45)
[2019-04-04] MEDS ORDERED: KETOROLAC TROMETHAMINE 30 MG/1 ML VIAL ONE (13:50)
[2019-04-04] MEDS ORDERED: GLYCOPYRROLATE 0.2 MG/1 ML VIAL ONE (13:53)
[2019-04-04] MEDS ORDERED: NEOSTIGMINE METHYLSULFATE 0.5 MG/ML - 10 ML MDV ONE (13:53)
[2019-04-04] MEDS ORDERED: DESFLURANE GAS 240 ML BOTTLE IH ONE (13:59)
[2019-04-04] MEDS ORDERED: ONDANSETRON 4 MG/2 ML VIAL IVPUSH PRN ×2 (14:28→14:45)
[2019-04-04] MEDS ORDERED: RANITIDINE HCL 150 MG TABLET (FP) PO PRN (14:50)
--- NOTE | 2019-04-04 14:54 | OP ---
Operative Note - Note: Operative Date: 04/04/19 Pre-Operative Diagnosis: Acute cholecystitis Operation: Laparoscopic cholecystectomy Findings: as dictated Post-Operative Diagnosis: Same as Pre-op Surgeon: Juan Manuel Gonzalez Refinery Operator Alkylation: Choco Franco Anesthesiologist/STEREOTYPER: Gigi Pyle Anesthesia: General, Local Specimens Removed: Gallbladder, gallstones Estimated Blood Loss (mls): 5 (ml) Drains, Volume Out (mls): 400 (ml yellow urine) Fluid Volume Replaced (mls): 300 (ml LR) Operative Report Dictated: Yes
--- NOTE | 2019-04-04 14:55 | SURG ---
Surgery Art Display Maker Note Art Display Maker: Choco Franco PA-C (Suzy) Date of Service: 04/04/19 Diagnosis: Acute cholecystitis Procedure: Laparoscopic cholecystectomy I was present for the entirety of the operative procedure. For further detail, please refer to operative report. Visit type - Case Type Case Type: Scheduled - Emergency Emergency Visit: Yes ED Registration Date: 04/02/19 Care time: The patient presented to the Emergency Department on the above date and was hospitalized for further evaluation of their emergent condition. - New patient This patient is new to me today: Yes Date on this admission: 04/04/19 - Critical Care Critical Care patient: No
[2019-04-04] MEDS ORDERED: ACETAMINOPHEN 325 MG TABLET (FP) PO PRN (16:00)
[2019-04-04] MEDS: oxyCODONE HCL 5 MG TABLET PO PRN ×2 (16:22→20:45)
[2019-04-04] MEDS ORDERED: PT OWN MED DRAWER 7, Y5N ONE (17:05)
--- NOTE | 2019-04-04 18:07 | CONS ---
DATE OF CONSULTATION: DATE OF DICTATION: 04/04/2019 INFECTIOUS DISEASE CONSULTATION REQUESTING PHYSICIAN: Hospitalist Service CONSULTING PHYSICIAN: Trevon Sharp M.D. HISTORY OF PRESENT ILLNESS: This is a 43-year-old woman. She was admitted on the with right upper quadrant pain. She had similar presentation in January of this year. She was seen in the emergency room with right upper quadrant pain. She was discharged to home and referred to surgery. She followed up with Dr. Gonzalez as an outpatient who prescribed Augmentin for her b.i.d. Sounds like she took it maybe once a day for 10 days and she finished about 3 days ago. She started having abdominal pain again, right upper quadrant, and presented to the emergency room. She reports chills but no fever. She was started on Zosyn in the ER. She is scheduled today for surgery. I am asked to see her for antibiotic recommendation. PAST MEDICAL HISTORY: Notable for 3 C-sections, a tubal ligation and reversal which she was noted to have ovarian cyst for which she is following up with her mattress filler. SOCIAL HISTORY: She works as a nursing aid. She is originally from [place]. She lives with her and family. There is no history of cigarette, alcohol, or substance use. FAMILY HISTORY: Noncontributory. ALLERGIES: She has no known drug allergies. MEDICATION: She takes no medicine. She just finished Augmentin 3 days ago. REVIEW OF SYSTEMS: As per HPI. PHYSICAL EXAMINATION: GENERAL: She is awake and alert. VITAL SIGNS: Temperature is 98.6, pulse is 66, blood pressure is 112/50, respiratory rate of 18. She is saturating 100%. HEENT: Normocephalic. Eyes are anicteric. NECK: Supple. LUNGS: Clear to auscultation. HEART: Regular rate and rhythm. ABDOMEN: Soft. She has mild right upper quadrant pain on exam to palpation. EXTREMITIES: Without edema. LABORATORY: White count is 5, hemoglobin 11.3, platelets are 269, INR is 1.16, BUN and creatinine are 5 and 0.8. LFTs are normal. Urinalysis is negative. test is negative. Cultures are no growth up to 24 hours. IMPRESSION: In summary, this is a 43-year-old woman with acute cholecystitis scheduled for surgery, can continue the Zosyn started in the emergency room. Would follow up with Dr. Gonzalez for antibiotic duration based on surgical operative results. TREVON SHARP M.D. [id number]
--- NOTE | 2019-04-04 18:31 | OP ---
DATE OF OPERATION: 04/04/2019 PROCEDURE: Laparoscopic cholecystectomy. PREOPERATIVE DIAGNOSIS: Acute cholecystitis. POSTOPERATIVE DIAGNOSIS: Acute cholecystitis. SURGEON: Juan Manuel Gonzalez MD HYDROELECTRIC COMPONENT MACHINIST: KIMO Antony ANESTHESIA: General endotracheal. FINDINGS AND PROCEDURE: This is a 43-year-old female who presents with 1-month ago with right upper quadrant pain radiating to the back, for which an initial ultrasound in the emergency department, showed distended gallbladder with large stones and thickened gallbladder wall. Patient was sent home and was seen by the undersigned at the office 2 weeks after the attack. At that time, patient was advised to undergo interval cholecystectomy. However, the pain recurred 3 weeks after the office visit, this time with severe right upper quadrant pain radiating to the back. An ultrasound showed a distended gallbladder with thickened thompson and pericholecystic fluid, containing multiple stones. Common duct was noted to be within normal limits. CT scan of the abdomen also showed findings consistent with acute cholecystitis; so, patient was admitted for bowel rest, IV antibiotics, and advised urgent cholecystectomy. Consent was obtained after discussing the risks , benefits, and alternatives to the procedure. Patient was brought to the operating room and placed in supine position. General endotracheal anesthesia was administered. The abdomen was prepped and draped in the usual sterile fashion. Using 0.5% Marcaine, local anesthesia was administered to the proposed incision sites. The peritoneal cavity was entered using the Optiview technique via a 5-mm umbilical incision using 5-mm, 30-degree scope inserted in a 5-mm optical port. Pneumoperitoneum was established. Patient was then placed in reverse Trendelenburg, [id number] position. A 12-mm port was inserted at the subxiphoid region, and two 5-mm ports were inserted at the right subcostal region at the midclavicular and anterior axillary lines. The gallbladder was noted to be distended, floppy, and enlarged. The liver was also noted to be enlarged. The gallbladder was also noted to be mildly edematous. The fundus was grasped and retracted superiorly to expose the infundibulum. This area was then grasped and retracted inferolaterally. The visceral peritoneum covering the hepatocystic angle was scored using the hook dissector connected to monopolar cautery. This was carried towards the proximal liver bed on both sides of the gallbladder. The cystic duct and cystic artery were identified, and a window was created behind the cystic artery and between the liver and the gallbladder wall to create the critical view of safety. The cystic artery was isolated first and clipped at 3 points, followed by transection, leaving 2 clips at the cystic artery stump. The cystic duct was then isolated and clipped at 3 points, followed by transection, leaving 2 clips at the cystic duct stump. The gallbladder was resected from its bed in antegrade fashion using the hook dissector connected to monopolar cautery. After the resection was completed, the gallbladder was placed in an Endobag. A small amount of blood in the Morison's pouch as well as the right hepatic gutter was suctioned. The gallbladder was then extracted from the subxiphoid port which was enlarged to accommodate the large gallbladder containing large stones. The pneumoperitoneum was evacuated, and the ports were removed. The wounds were closed with continuous Vicryl 0 suture for the fascia of the subxiphoid port and Biosyn 4-0 subcuticular sutures for the rest of the skin wounds. The wound closure was reinforced with Dermabond. Patient was successfully extubated and transferred to the postanesthesia care unit in satisfactory condition. ESTIMATED BLOOD LOSS: About 10 mL. WOUND CLASS: Contaminated. Patient was already on Zosyn upon admission. Lovely [id number] MTDD
--- NOTE | 2019-04-04 18:38 | OP ---
Operative Note - Note: Operative Date: 04/04/19 Pre-Operative Diagnosis: Acute cholecystitis Operation: Laparoscopic cholecystectomy Findings: distended and mildly edematous gallbladder with multiple large stones Post-Operative Diagnosis: Same as Pre-op Surgeon: Juan Manuel Gonzalez Clinical Administrative Coordinator: Chcoo Franco Anesthesia: General Specimens Removed: gallbladder Estimated Blood Loss (mls): 10 Operative Report Dictated: Yes
[2019-04-04] MEDS ORDERED: IBUPROFEN 600 MG TABLET (FP) PO PRN (20:00)
[2019-04-04] MEDS: PIPERACILLIN/TAZOB 4.5 GM 4.5 GM in DEXTROSE 5%-WATER 100 ML IVPB SCH (20:46)
[2019-04-04] MEDS: DOCUSATE SODIUM 100 MG CAPSULE (FP) PO SCH (21:56)
[2019-04-05] MEDS ORDERED: PIPERACILLIN/TAZOB 4.5 GM 4.5 GM in DEXTROSE 5%-WATER 100 ML IVPB SCH (02:00)
[2019-04-05] MEDS ORDERED: PIPERACILLIN/TAZOBACTAM 4.5 GM VIAL IVPB ONE ×2 (02:16→09:53)
[2019-04-05] MEDS ORDERED: DEXTROSE 5%-WATER 100 ML IVPB ONE ×2 (02:16→09:54)
[2019-04-05] MEDS: PIPERACILLIN/TAZOB 4.5 GM 4.5 GM in DEXTROSE 5%-WATER 100 ML IVPB SCH ×5 (02:30→20:00)
--- NOTE | 2019-04-05 07:28 | PN ---
Teaching Attending Note Name of Resident: Anival Kearns ATTENDING PHYSICIAN STATEMENT I saw and evaluated the patient. I reviewed the resident's note and discussed the case with the resident. I agree with the resident's findings and plan as documented. SUBJECTIVE: Still c/o abd pain passing gases , tolerating clear liquid OBJECTIVE: Vital Signs Temperature 98.6 F 04/05/19 02:00 Pulse Rate 87 04/05/19 02:00 Respiratory Rate 18 04/05/19 02:00 Blood Pressure 123/63 04/05/19 02:00 O2 Sat by Pulse Oximetry (%) 100 04/04/19 15:50 HEENT: Mm moist, no anemia, PERRLA EOMI NECK: no JVD No bruit CHEST: CTA B/L CVS: s1S2 r no m/g/r ABD: S/P LAP cholycystectomy no distention Mild Rt UQ/epigastric tenderness tender Bs + EXT: No edema feet, no calf tenderness SOUR BLEACHING PLEATER: AOX3 non focal ASSESSMENT AND PLAN:43 yrs old F admitted with acutecholycystitis s/p Laproscopic cholcystectomy, TWBC 18 K but afebrile; Plan; Cont current management Can be Dc once TWBC Problem List - Problems (1) Acute cholecystitis Assessment/Plan: s/p cholystectomy tolerating PO will Dc plan as per Surgery team meantime cont current management Code(s): K81.0 - ACUTE CHOLECYSTITIS
--- NOTE | 2019-04-05 07:29 | PN ---
Physical Exam: SUBJECTIVE: Patient seen and examined by the bedside, no acute complaints. OBJECTIVE: Vital Signs Period Temp Pulse Resp BP Sys/You Pulse Ox Last 24 Hr 97.4 F-99.5 F 61-104 16-18 92-130/50-79 100-100 GENERAL: The patient is awake, alert, and fully oriented, in no acute distress. HEAD: Normal with no signs of trauma. EYES: PERRL, extraocular movements intact, sclera anicteric, conjunctiva clear. No ptosis. ENT: Ears normal, nares patent, oropharynx clear without exudates, moist mucous membranes. NECK: Trachea midline, full range of motion, supple. LUNGS: Breath sounds equal, clear to auscultation bilaterally, no wheezes, no crackles, no accessory muscle use. HEART: Regular rate and rhythm, S1, S2 without murmur, rub or gallop. ABDOMEN: Soft, diffuse tenderness rebound, no hepatosplenomegaly, no masses. EXTREMITIES: 2+ pulses, warm, well-perfused, no edema. NEUROLOGICAL: Cranial nerves II through XII grossly intact. Normal speech, gait not observed. PSYCH: Normal mood, normal affect. SKIN: Warm, dry, normal turgor, no rashes or lesions noted Laboratory Results - last 24 hr 04/04/19 04/04/19 07:11 07:11 PT with INR 13.70 H INR 1.16 H Blood Type O POSITIVE Antibody Screen Negative Active Medications Generic Name Dose Route Start Last Admin Trade Name Freq PRN Reason Stop Dose Admin Acetaminophen 650 mg 04/04/19 16:00 Tylenol - PO Q6H PRN PAIN Docusate Sodium 100 mg 04/04/19 22:00 04/04/19 21:56 Colace - PO 100 mg BID JEFFREY Administration Lactated Ringer's 1,000 ml in 1,000 mls @ 100 mls/hr 04/04/19 14:45 04/04/19 15:50 Lactated Ringers Solution IV 0 mls ASDIR JEFFREY Administration Piperacillin Sod/Tazobactam 100 mls @ 200 mls/hr 04/04/19 20:00 04/05/19 02: 30 Sod 4.5 gm/ Dextrose IVPB 04/05/19 19:59 200 mls/hr Q8H-IV JEFFREY Administration Protocol Ibuprofen 600 mg 04/04/19 20:00 04/04/19 23:57 Motrin - PO 600 mg Q6H PRN Administration PAIN LEVEL 4 - 6 Ondansetron HCl 4 mg 04/04/19 14:45 Zofran Injection IVPUSH Q6H PRN NAUSEA AND/OR VOMITING Oxycodone HCl 5 mg 04/04/19 14:45 04/04/19 20:45 Roxicodone - PO 5 mg Q4H PRN Administration PAIN LEVEL 1-5 Ranitidine HCl 150 mg 04/04/19 14:50 Zantac - PO BID PRN INDIGESTION ASSESSMENT/PLAN: 43 year old female with PMH significant for ,presented to the ER with recurrent RUQ crampy abdominal pain for the past 2 days, worse with laying back and improves with sitting up. Last seen in the ER 02/15, US showed non specific GB thickening with a normal CBD. Was prescribed 10 days of Augmentin, and was advised cholecystectomy in 6 - 8 weeks. Presented with nausea, but no vomiting diarrhea, fevers, or chills. #RUQ Pain - Cholecystectomy performed, post op day 1 - F/U with Dr Gonzalez for abx duration - WBC 16 ->18 - Continue IV Zosyn (started in ER) - ID consult: cont IV Zosyn - Blood cx: pending, no growth - Urine cx: normal ricardo - Ofiramev for pain #FEN - tolerating diet #DVT - SCD Visit type - Emergency Visit Emergency Visit: Yes ED Registration Date: 04/02/19 Care time: The patient presented to the Emergency Department on the above date and was hospitalized for further evaluation of their emergent condition. - New Patient This patient is new to me today: No - Critical Care Critical Care patient: No - Discharge Referral Referred to [facility] Med P.C.: No ATTENDING PHYSICIAN STATEMENT I saw and evaluated the patient. I reviewed the resident's note and discussed the case with the resident. I agree with the resident's findings and plan as documented. SUBJECTIVE: OBJECTIVE: ASSESSMENT AND PLAN:
[2019-04-05 07:42] LABS: HEMATOCRIT 33.7 % (32.4-45.2); HEMOGLOBIN 10.9 GM/dL (10.7-15.3); MCH 29.8 pg (25.7-33.7); MCHC 32.4 g/dl (32.0-36.0); MEAN CELL VOLUME 92.1 fl (80-96); MEAN PLT VOLUME 8.6 fl (7.5-11.1); PLATELET COUNT 270 K/MM3 (134-434); RBC 3.65 M/mm3 (3.60-5.2); RDW 13.7 % (11.6-15.6); WHITE BLOOD COUNT 16.3 K/mm3 (4.0-10.0)
[2019-04-05 08:01] LABS: BLOOD UREA NITROGEN 8.9 mg/dL (7-18); CREATININE 0.8 mg/dL (0.55-1.3); POTASSIUM 4.2 mmol/L (3.5-5.1)
[2019-04-05] MEDS: oxyCODONE HCL 5 MG TABLET PO PRN ×3 (08:12→19:49)
--- NOTE | 2019-04-05 09:17 | PN ---
Progress Note (short form) - Note Progress Note: POD 1, s/p Lap inder Pt seen and examined. Reports she is feeling well this morning. Has some pain but is controlled with pain meds. Has been oob to the restroom without issue. + Voiding. Tolerating PO. Denies cp/sob, n/v,d. Vital Signs Temp 98.5 F 04/05/19 06:00 Pulse 79 04/05/19 06:00 Resp 18 04/05/19 06:00 BP 106/62 04/05/19 06:00 Pulse Ox 98 04/04/19 21:00 Intake & Output 04/04/19 04/04/19 04/05/19 11:59 23:59 11:59 Intake Total 800 1400 1200 Output Total 400 Balance 400 1400 1200 Intake: IV 800 1300 1000 LACTATED RINGERS SOLUTION [id number] 1,000 ml In 1,000 ml @ 100 mls/hr IV ASDIR JEFFREY Rx#:[id number] IVPB 200 Oral 0 100 Output: Urine 400 Estimated Blood Loss 0 Other: Voiding Method Toilet Toilet Toilet # Unmeasured Voids Void 1 1 Bowel Movement No No No CBC, BMP 04/05/19 06:30 04/05/19 06:30 Gen: awake, alert, nad Resp: Unlabored on RA Abdo: soft, nt/nd, incisions c/d/i with dermabond in place Ext: Calves soft, nt A/P: 43 y/o F w/ known gallstones and recent episode of acute cholecystitis planned for interval cholecystectomy, now a/w second episode of acute inder, POD 1, s/p Lap cholecystectomy. Doing well post op VSS, CBC with wbc 16k (yesterday was 5k) Pain controlled -cbc rechecked at noon, wbc now 18k, awaiting attending input -Continue pain meds as ordered -OOB ad keyona -Diet as tolerated -VS per protocol d/w attending Dr Gonzalez
[2019-04-05] MEDS: DOCUSATE SODIUM 100 MG CAPSULE (FP) PO SCH ×2 (09:57→21:27)
[2019-04-05] MEDS: LACTATED RINGERS SOLUTION 1,000 ML/1,000 ML INFUS.BAG IV SCH (10:10)
[2019-04-05 12:25] LABS: HEMATOCRIT 35.1 % (32.4-45.2); HEMOGLOBIN 11.4 GM/dL (10.7-15.3); MCH 29.7 pg (25.7-33.7); MCHC 32.4 g/dl (32.0-36.0); MEAN CELL VOLUME 91.6 fl (80-96); MEAN PLT VOLUME 8.4 fl (7.5-11.1); PLATELET COUNT 279 K/MM3 (134-434); RBC 3.83 M/mm3 (3.60-5.2); RDW 13.8 % (11.6-15.6); WHITE BLOOD COUNT 18.8 K/mm3 (4.0-10.0)
[2019-04-05] MEDS ORDERED: POLYETHYLENE GLYCOL 3350 119 GM BTL PO PRN (13:23)
[2019-04-05 16:36] LABS: AMYLASE 26 U/L (25-115); LIPASE 62 U/L (73-393)
[2019-04-05 16:42] LABS: BILIRUBIN,TOTAL 0.3 mg/dL (0.2-1); BLOOD UREA NITROGEN 7.5 mg/dL (7-18); CALCIUM 9.1 mg/dL (8.5-10.1); CREATININE 0.9 mg/dL (0.55-1.3); POTASSIUM 3.7 mmol/L (3.5-5.1); TOT PROT 6.6 g/dl (6.4-8.2)
--- NOTE | 2019-04-05 19:54 | PN ---
Progress Note, Physician Chief Complaint: acute cholecystitis History of Present Illness: S/P LAPAROSCOIC CHOLECYSTECTOMY POD # 1 C/O incisional pain at subxyphoid port area with SOB Has mild RUQ pain Tolerating diet - Current Medication List Current Medications: Active Medications Acetaminophen (Tylenol -) 650 mg PO Q6H PRN PRN Reason: PAIN Docusate Sodium (Colace -) 100 mg PO BID JEFFREY Last Admin: 04/05/19 09:57 Dose: 100 mg Piperacillin Sod/Tazobactam (Sod 4.5 gm/ Dextrose) 100 mls @ 200 mls/hr IVPB Q8H-IV JEFFREY; Protocol Stop: 04/05/19 19:59 Last Admin: 04/05/19 10:07 Dose: 200 mls/hr Piperacillin Sod/Tazobactam (Sod 4.5 gm/ Dextrose) 100 mls @ 200 mls/hr IVPB Q8H-IV JEFFREY Ibuprofen (Motrin -) 600 mg PO Q6H PRN PRN Reason: PAIN LEVEL 4 - 6 Last Admin: 04/04/19 23:57 Dose: 600 mg Ondansetron HCl (Zofran Injection) 4 mg IVPUSH Q6H PRN PRN Reason: NAUSEA AND/OR VOMITING Oxycodone HCl (Roxicodone -) 5 mg PO Q4H PRN PRN Reason: PAIN LEVEL 1-5 Last Admin: 04/05/19 08:12 Dose: 5 mg Oxycodone HCl (Roxicodone -) 10 mg PO Q4H PRN PRN Reason: PAIN LEVEL 6-10 Last Admin: 04/05/19 15:16 Dose: 10 mg Polyethylene Glycol (Miralax (For Daily Use) -) 17 gm PO DAILY PRN PRN Reason: CONSTIPATION Last Admin: 04/05/19 18:57 Dose: 17 gm Ranitidine HCl (Zantac -) 150 mg PO BID PRN PRN Reason: INDIGESTION - Objective Vital Signs: Vital Signs Temperature 98.8 F 04/05/19 18:00 Pulse Rate 70 04/05/19 18:00 Respiratory Rate 20 04/05/19 18:00 Blood Pressure 123/62 04/05/19 18:00 O2 Sat by Pulse Oximetry (%) 98 04/05/19 09:00 Constitutional: Yes: No Distress Eyes: Yes: Conjunctiva Clear HENT: Yes: Normocephalic Neck: Yes: Supple Cardiovascular: Yes: Regular Rate and Rhythm Respiratory: Yes: Poor Air Entry Gastrointestinal: Yes: Soft, Tenderness (at xyphoid port site) Wound/Incision: Yes: Clean/Dry Labs: CBC, BMP 04/05/19 12:00 04/05/19 14:50 INR, PTT INR 1.16 (0.83-1.09) H 04/04/19 07:11 - ....Imaging Chest X-ray: Report Reviewed (atelectasis), Image Reviewed Problem List - Problems (1) Acute cholecystitis Assessment/Plan: Leukocystosis maybe due to atelectasis from incisional pain r/o bile leak but less likely as patient has no significant RUQ pain and LFT's are WNL Will monitor CBC and LFT'S If WBC ct remains high, will investigate for bile leak with CT A/P and HIDA scan Code(s): K81.0 - ACUTE CHOLECYSTITIS
[2019-04-06] MEDS ORDERED: PT OWN MED DRAWER 7, Y5N ONE (02:09)
[2019-04-06] MEDS: PIPERACILLIN/TAZOB 4.5 GM 4.5 GM in DEXTROSE 5%-WATER 100 ML IVPB SCH ×2 (02:30→10:24)
[2019-04-06 07:35] LABS: BASO % 0.3 % (0-2.0); HEMATOCRIT 32.9 % (32.4-45.2); HEMOGLOBIN 10.8 GM/dL (10.7-15.3); LYMPH % 22.3 % (8-40); MCH 30.6 pg (25.7-33.7); MCHC 32.9 g/dl (32.0-36.0); MEAN CELL VOLUME 92.9 fl (80-96); MEAN PLT VOLUME 8.4 fl (7.5-11.1); MONO % 7.6 % (3.8-10.2); NEUT % 68.8 % (42.8-82.8); PLATELET COUNT 246 K/MM3 (134-434); RBC 3.55 M/mm3 (3.60-5.2); RDW 13.9 % (11.6-15.6); WHITE BLOOD COUNT 10.8 K/mm3 (4.0-10.0)
[2019-04-06 07:59] LABS: ALBUMIN 2.7 g/dl (3.4-5.0); BILIRUBIN,DIRECT 0.1 mg/dL (0.0-0.2); BILIRUBIN,TOTAL 0.5 mg/dL (0.2-1); BLOOD UREA NITROGEN 7.1 mg/dL (7-18); CALCIUM 8.5 mg/dL (8.5-10.1); CREATININE 0.8 mg/dL (0.55-1.3); POTASSIUM 3.8 mmol/L (3.5-5.1); TOT PROT 5.9 g/dl (6.4-8.2)
[2019-04-06] MEDS: oxyCODONE HCL 5 MG TABLET PO PRN (08:20)
--- NOTE | 2019-04-06 09:22 | PN ---
Progress Note (short form) - Note Progress Note: POD 2, s/p Lap inder Pt seen and examined. Reports her pain is improved this morning. Has been oob, tolerating PO. Voiding and passing flatus. No BM yet. Denies cp/sob, n/v/d. Vital Signs Temp 98.3 F 04/06/19 06:00 Pulse 83 04/06/19 06:00 Resp 18 04/06/19 06:00 BP 126/74 04/06/19 06:00 Pulse Ox 98 04/05/19 09:00 Intake & Output 04/05/19 04/05/19 04/06/19 11:59 23:59 11:59 Intake Total 1200 1835 Balance 1200 1835 Intake: IV 1000 100 LACTATED RINGERS SOLUTION 1000 1,000 ml In 1,000 ml @ 100 mls/hr IV ASDIR JEFFREY Rx#:[id number] LACTATED RINGERS SOLUTION 100 1,000 ml In 1,000 ml @ 100 mls/hr IV ASDIR JEFFREY Rx#:[id number] IVPB 200 400 Oral 1335 Other: Voiding Method Toilet Toilet Toilet # Unmeasured Voids Void 1 Bowel Movement No No No CBC, BMP 04/06/19 06:55 04/06/19 06:55 Gen: awake, alert, nad Resp: Unlabored on RA Abdo: soft, nt/nd, incisions c/d/i with dermabond in place Ext: Calves soft, nt A/P: 43 y/o F w/ known gallstones and recent episode of acute cholecystitis planned for interval cholecystectomy, now a/w second episode of acute inder, POD 2, s/p Lap cholecystectomy. Doing well post op VSS, CBC with wbc trending down, 10.8 today from high of 18.8 yesterday Pain improved -Cleared from discharge from general surgery standpoint -Pt should f/u in the office with Dr Gonzalez early next week d/w attending Dr Gonzalez
[2019-04-06] MEDS ORDERED: POLYETHYLENE GLYCOL 3350 119 GM BTL PO SCH (09:30)
[2019-04-06] MEDS ORDERED: PIPERACILLIN/TAZOBACTAM 4.5 GM VIAL IVPB ONE (10:10)
[2019-04-06] MEDS ORDERED: DEXTROSE 5%-WATER 100 ML IVPB ONE (10:10)
[2019-04-06] MEDS: DOCUSATE SODIUM 100 MG CAPSULE (FP) PO SCH (10:23)
--- NOTE | 2019-04-06 14:40 | PN ---
Teaching Attending Note Name of Resident: Anival Kearns ATTENDING PHYSICIAN STATEMENT I saw and evaluated the patient. I reviewed the resident's note and discussed the case with the resident. I agree with the resident's findings and plan as documented. SUBJECTIVE: Patient is feeling better, walking around with no acute distress. wants to go home. OBJECTIVE: Vital Signs Temperature 98.2 F 04/06/19 10:15 Pulse Rate 102 H 04/06/19 10:15 Respiratory Rate 20 04/06/19 10:15 Blood Pressure 135/78 04/06/19 10:15 O2 Sat by Pulse Oximetry (%) 98 04/05/19 09:00 GENERAL: The patient is awake, alert, and fully oriented, in no acute distress. HEAD: Normal with no signs of trauma. EYES: PERRL, extraocular movements intact, sclera anicteric, conjunctiva clear. ENT: Ears normal, oropharynx clear without exudates, moist mucous membranes. NECK: Trachea midline, full range of motion, supple. LUNGS: Breath sounds equal, clear to auscultation bilaterally, no wheezes, no crackles, no accessory muscle use. HEART: Regular rate and rhythm, S1, S2 without murmur, rub or gallop. ABDOMEN: Soft, s/p Lap inder. mild tenderness incision site, BS positive, no guarding, no rebound, no hepatosplenomegaly, no masses. EXTREMITIES: 2+ pulses, warm, well-perfused, no edema. NEUROLOGICAL: Cranial nerves II through XII grossly intact. Normal speech, gait not observed. PSYCH: Normal mood, normal affect. SKIN: Warm, dry, normal turgor, no rashes or lesions noted CBCD WBC 10.8 K/mm3 (4.0-10.0) H 04/06/19 06:55 RBC 3.55 M/mm3 (3.60-5.2) L 04/06/19 06:55 Hgb 10.8 GM/dL (10.7-15.3) 04/06/19 06:55 Hct 32.9 % (32.4-45.2) 04/06/19 06:55 MCV 92.9 fl (80-96) 04/06/19 06:55 MCHC 32.9 g/dl (32.0-36.0) 04/06/19 06:55 RDW 13.9 % (11.6-15.6) 04/06/19 06:55 Plt Count 246 K/MM3 (134-434) 04/06/19 06:55 MPV 8.4 fl (7.5-11.1) 04/06/19 06:55 CMP Sodium 143 mmol/L (136-145) 04/06/19 06:55 Potassium 3.8 mmol/L (3.5-5.1) 04/06/19 06:55 Chloride 107 mmol/L (98-107) 04/06/19 06:55 Carbon Dioxide 31 mmol/L (21-32) 04/06/19 06:55 Anion Gap 5 MMOL/L (8-16) L 04/06/19 06:55 BUN 7.1 mg/dL (7-18) 04/06/19 06:55 Creatinine 0.8 mg/dL (0.55-1.3) 04/06/19 06:55 Random Glucose 82 mg/dL (74-106) 04/06/19 06:55 Calcium 8.5 mg/dL (8.5-10.1) 04/06/19 06:55 Total Bilirubin 0.5 mg/dL (0.2-1) 04/06/19 06:55 AST 21 U/L (15-37) 04/06/19 06:55 ALT 27 U/L (13-61) 04/06/19 06:55 Alkaline Phosphatase 48 U/L (45-117) 04/06/19 06:55 Total Protein 5.9 g/dl (6.4-8.2) L 04/06/19 06:55 Albumin 2.7 g/dl (3.4-5.0) L 04/06/19 06:55 Current Medications Generic Name Dose Route Start Last Admin Trade Name Freq PRN Reason Stop Dose Admin Acetaminophen 650 mg 04/04/19 16:00 Tylenol - PO Q6H PRN PAIN Docusate Sodium 100 mg 04/04/19 22:00 04/06/19 10:23 Colace - PO 100 mg BID JEFFREY Administration Piperacillin Sod/Tazobactam 100 mls @ 200 mls/hr 04/06/19 02:00 04/06/19 10: 24 Sod 4.5 gm/ Dextrose IVPB 200 mls/hr Q8H-IV JEFFREY Administration Ibuprofen 600 mg 04/04/19 20:00 04/04/19 23:57 Motrin - PO 600 mg Q6H PRN Administration PAIN LEVEL 4 - 6 Ondansetron HCl 4 mg 04/04/19 14:45 Zofran Injection IVPUSH Q6H PRN NAUSEA AND/OR VOMITING Oxycodone HCl 5 mg 04/04/19 14:45 04/05/19 08:12 Roxicodone - PO 5 mg Q4H PRN Administration PAIN LEVEL 1-5 Oxycodone HCl 10 mg 04/05/19 13:23 04/06/19 08:20 Roxicodone - PO 10 mg Q4H PRN Administration PAIN LEVEL 6-10 Polyethylene Glycol 17 gm 04/06/19 09:30 04/06/19 10:23 Miralax (For Daily Use) - PO 17 grams DAILY JEFFREY Administration Ranitidine HCl 150 mg 04/04/19 14:50 Zantac - PO BID PRN INDIGESTION Senna 1 tab 04/06/19 22:00 Senna - PO HS [facility] Home Medications Medication Instructions Recorded Acetaminophen [Tylenol .Regular 650 mg PO Q6H PRN tablet 04/06/19 Strength -] Docusate Sodium [Colace -] 100 mg PO BID capsule 04/06/19 Ibuprofen [Motrin -] 600 mg PO Q6H PRN tablet 04/06/19 Polyethylene Glycol 3350 [Miralax 17 gm PO DAILY bottle 04/06/19 119 gm Btl -] Ranitidine [Zantac -] 150 mg PO BID PRN tablet 04/06/19 Sennosides [Senna -] 1 tab PO HS tablet 04/06/19 oxyCODONE HCL [Roxicodone -] 5 mg PO Q6H PRN #8 tablet MDD 4 04/06/19 ASSESSMENT AND PLAN: Patient is a 43 yrs old Female presented with acute cholycystitis. # POD #2 s/p Laproscopic cholcystectomy for acute cholecystitis . As per ID no further antibiotic is needed. will discharge the patient home. as per surgery patient can go home and follow up with the surgeon within a week.
[2019-04-06 15:32] VITALS: BP 127/71; PULSE 61; TEMP 97.9
--- NOTE | 2019-04-06 19:23 | DS ---
Physical Exam: SUBJECTIVE: Patient seen and examined by the bedside, AOx3, no acute complaints. OBJECTIVE: Vital Signs Period Temp Pulse Resp BP Sys/You Pulse Ox Last 24 Hr 97.9 F-98.4 F 61-102 18-20 126-136/70-78 97 PHYSICAL EXAM GENERAL: The patient is awake, alert, and fully oriented, in no acute distress. HEAD: Normal with no signs of trauma. EYES: PERRL, extraocular movements intact, sclera anicteric, conjunctiva clear. ENT: Ears normal, nares patent, oropharynx clear without exudates, moist mucous membranes. NECK: Trachea midline, full range of motion, supple. LUNGS: Breath sounds equal, clear to auscultation bilaterally, no wheezes, no crackles, no accessory muscle use. HEART: Regular rate and rhythm, S1, S2 without murmur, rub or gallop. ABDOMEN: Soft, tenderness in RUQ and RLQ EXTREMITIES: 2+ pulses, warm, well-perfused, no edema. NEUROLOGICAL: Cranial nerves II through XII grossly intact. Normal speech, gait not observed. PSYCH: Normal mood, normal affect. SKIN: Warm, dry, normal turgor, no rashes or lesions noted. LABS Laboratory Results - last 24 hr 04/06/19 04/06/19 06:55 06:55 WBC 10.8 H RBC 3.55 L Hgb 10.8 Hct 32.9 MCV 92.9 MCH 30.6 MCHC 32.9 RDW 13.9 Plt Count 246 MPV 8.4 Absolute Neuts (auto) 7.4 Neutrophils % 68.8 D Lymphocytes % 22.3 D Monocytes % 7.6 Eosinophils % 1.0 Basophils % 0.3 Nucleated RBC % 0 Sodium 143 Potassium 3.8 Chloride 107 Carbon Dioxide 31 Anion Gap 5 L BUN 7.1 Creatinine 0.8 Est GFR (CKD-EPI)AfAm 106.13 Est GFR (CKD-EPI)NonAf 91.57 Random Glucose 82 Calcium 8.5 Total Bilirubin 0.5 Direct Bilirubin 0.1 AST 21 ALT 27 Alkaline Phosphatase 48 Total Protein 5.9 L Albumin 2.7 L HOSPITAL COURSE: Date of Admission:04/02/19 43 year old female with PMH significant for ,presented to the ER with recurrent RUQ crampy abdominal pain for the past 2 days, worse with laying back and improves with sitting up. Last seen in the ER 02/15, US showed non specific GB thickening with a normal CBD. Was prescribed 10 days of Augmentin, and was advised cholecystectomy in 6 - 8 weeks. Presented with nausea, but no vomiting diarrhea, fevers, or chills. Date of Discharge: 04/06/19 Cholecystectomy was performed. WBC was initially high, went from 16 to 18 post op, but back to 10 on post op day 10. She was given IV Zosyn for 3 days. and ID was consulted ABx were stopped. Patient was discharged on Miralax, Colace, and Tylenol for pain. Minutes to complete discharge: 36 Discharge Summary Reason For Visit: ACUTE CHOLECYSTITIS Condition: Stable - Instructions Diet, Activity, Other Instructions: Dr Gonzalez Discharge Instructions Dear RENATO DOYLE, Post Operative Instructions Physical activity Resume your normal everyday activity as tolerated no heavy lifting or exercise until seen by your surgeon. You may walk unlimited amounts of and climb stairs. You may resume driving the car when you feel safe and comfortable behind the wheel and are no longer taking narcotic pain medications. Wound care If you have a bandage, leave it on, and keep dry for 48-72 hours. After that time discard the outer bandage. If there are tapes on the skin under the outer bandage, leave them in place. They will peel off in the next 7 to 10 days. Do Not Peel them off. You may shower the day after surgery. If there are tapes present on the skin, you may shower over them. Diet There are no dietary restrictions. Eat healthy, high-fiber foods. Drink 6 to 8 glasses of liquid each day. This will assist in keeping your bowels are regular. Pain management You may take Tylenol or acetaminophen or Ibuprofen (for example, Motrin, Advil etc.) Any pain prescription medication ordered should be taken as prescribed for moderate to severe pain. If you are taking narcotic pain medications we recommend taking an over the counter stool softener as constipation is a common side effect of narcotic pain medications. Do not drive, drink alcohol or operate heavy machinery while taking narcotic pain medications. Call Dr. Gonzalez for any of the following: Severe pain not relieved by medication Fever of 101 or higher Excessive bleeding or drainage on dressing Inability to urinate Call the office at [phone] for an appointment in 7 days. Additionally, please follow up with your primary care physician, Dr. Garcia within 1 week. Referrals: Juan Manuel Gonzalez MD [Staff Physician] - 1 Week Disposition: HOME - Home Medications Comprehensive Discharge Medication List: Ambulatory Orders Acetaminophen [Tylenol .Regular Strength -] 650 mg PO Q6H PRN tablet 04/06/19 Docusate Sodium [Colace -] 100 mg PO BID capsule 04/06/19 Ibuprofen [Motrin -] 600 mg PO Q6H PRN tablet 04/06/19 Polyethylene Glycol 3350 [Miralax 119 gm Btl -] 17 gm PO DAILY bottle 04/06/19 Ranitidine [Zantac -] 150 mg PO BID PRN tablet 04/06/19 Sennosides [Senna -] 1 tab PO HS tablet 04/06/19 oxyCODONE HCL [Roxicodone -] 5 mg PO Q6H PRN #8 tablet MDD 4 04/06/19 This patient is new to me today: No Emergency Visit: Yes ED Registration Date: 04/02/19 Care time: The patient presented to the Emergency Department on the above date and was hospitalized for further evaluation of their emergent condition. Critical Care patient: No - Discharge Referral Referred to [facility] No ATTENDING PHYSICIAN STATEMENT I saw and evaluated the patient. I reviewed the resident's note and discussed the case with the resident. I agree with the resident's findings and plan as documented. SUBJECTIVE: OBJECTIVE: ASSESSMENT AND PLAN:
[2019-04-06] MEDS ORDERED: SENNOSIDES 8.6MG TABLET (FP) PO SCH (22:00)
== END 2019-04-06 16:17 | disposition home or self-care (01) | DRG 263 ==
LOC: JER 16:13 → JERBED 22:04 → J5S 23:54
PROVIDERS: ADMIT Internal Medicine; ATTEND Internal Medicine
PROC: 0FT44ZZ Resection of Gallbladder, Percutaneous Endoscopic Approach (ICD-10-PCS; principal; 2019-04-04 12:00)
DX: K80.00 Calculus of gallbladder with acute cholecystitis without obstruction (principal); J98.11 Atelectasis; N83.202 Unspecified ovarian cyst, left side; N83.201 Unspecified ovarian cyst, right side
CPT/HCPCS: 36415; 71045-TC-FY; 74177-TC; 76705-TC; 80048; 80053; 80076; 81003; 82150; 83690; 83735; 84702; 85025; 85027; 85610; 86850; 86900; 86901; 87040; 87086; 88304-TC; 93005; 93010; 94760; 99284-25; J0131; J7030

== ENCOUNTER 2019-05-15 13:19 | Emergency (ER) | payer OTHER ==
[2019-05-15 14:00] VITALS: BMI 28.0
[2019-05-15] MEDS ORDERED: morphine CARPU-JECT 4 MG/1 ML DISP.SYRIN IVPUSH ONE (14:22)
[2019-05-15] MEDS ORDERED: ONDANSETRON 4 MG/2 ML VIAL IVPUSH ONE (14:23)
[2019-05-15] MEDS ORDERED: SODIUM CHLORIDE 1,000 ML IV STA (14:23)
--- NOTE | 2019-05-15 14:25 | PDOC ---
History of Present Illness - General Chief Complaint: Pain Stated Complaint: ABDOMINAL PAIN Time Seen by Provider: 05/15/19 14:19 History Source: Patient - History of Present Illness Timing/Duration: getting worse Past History - Past Medical History Allergies/Adverse Reactions: Allergies Allergy/AdvReac Type Severity Reaction Status Date / Time No Known Allergies Allergy Verified 04/02/19 16:28 Home Medications: Ambulatory Orders Docusate Sodium [Colace -] 100 mg PO PRN 05/15/19 Anemia: No Cancer: No Cardiac Disorders: No CVA: No COPD: No Seizures: Yes - Surgical History Abdominal Surgery: Yes - Immunization History Td Vaccination: Yes Immunization Up to Date: Yes - Suicide/Smoking/Psychosocial Hx Smoking Status: No Smoking History: Never smoked Have you smoked in the past 12 months: No Number of Cigarettes Smoked Daily: 0 Hx Alcohol Use: No Drug/Substance Use Hx: No Substance Use Type: None Review of Systems - Review of Systems Constitutional: No: Chills, Fever Respiratory: No: Shortness of Breath Cardiac (ROS): No: Chest Pain, Palpitations ABD/GI: Yes: Nausea. No: Blood Streaked Bowels, Constipated, Diarrhea, Rectal Bleeding, Vomiting : No: Dysuria, Flank Pain *Physical Exam - Vital Signs Last Vital Signs Temp Pulse Resp BP Pulse Ox 98.2 F 69 20 131/72 100 05/15/19 13:39 05/15/19 13:39 05/15/19 13:39 05/15/19 13:39 05/15/19 13:39 - Physical Exam General Appearance: Yes: Appropriately Dressed, Mild Distress HEENT: positive: Normal Voice Neck: positive: Supple Respiratory/Chest: positive: Lungs Clear, Normal Breath Sounds. negative: Respiratory Distress Cardiovascular: positive: Regular Rate, S1, S2 Gastrointestinal/Abdominal: positive: Normal Bowel Sounds, Tender (Sig ttp to umbilicus, mod ttp to RUQ and ? to epigastrium), Soft. negative: Distended, Guarding, Rebound Musculoskeletal: negative: CVA Tenderness Integumentary: positive: Dry, Warm Neurologic: positive: Fully Oriented, Alert, Normal Mood/Affect ED Treatment Course - LABORATORY CBC & Chemistry Diagram: 05/15/19 14:45 05/15/19 14:45 Medical Decision Making - Medical Decision Making 05/15/19 14:20 43 yo F, h/o seizures, no longer on meds, s/p inder 4-5 weeks ago at [facility] w/ Dr Gonzalez, here w/ abd pain. States she started having joe-umbilical pain last night and improved with Motrin but that pain worsened today. Reports nausea, no vomiting, change in bowel movements, fever or chills. No dysuria. States pain similar to pain prior to her surgery See exam Abd pain s/p recent inder Concern for retained stone, ?intra-abd abscess given sig ttp to umbilicus at site of surg incision -pain control -zofran -IVF -labs -US -?CT -possible MRCP 05/15/19 16:00:47 Labs unremarkable. Signed out to CHRIST Fleming pending US. If neg, may need CT. 05/15/19 16:14
[2019-05-15] MEDS ORDERED: morphine SULFATE 4 MG/ML VIAL ONE (14:53)
[2019-05-15] MEDS ORDERED: ONDANSETRON 4 MG/2 ML VIAL ONE (14:54)
[2019-05-15 14:55] LABS: BASO % 0.6 % (0-2.0); HEMATOCRIT 35.1 % (32.4-45.2); HEMOGLOBIN 11.5 GM/dL (10.7-15.3); LYMPH % 29.5 % (8-40); MCHC 32.8 g/dl (32.0-36.0); MEAN CELL VOLUME 91.6 fl (80-96); MEAN PLT VOLUME 8.2 fl (7.5-11.1); MONO % 9.5 % (3.8-10.2); NEUT % 56.4 % (42.8-82.8); PLATELET COUNT 276 K/MM3 (134-434); RBC 3.83 M/mm3 (3.60-5.2); RDW 13.5 % (11.6-15.6); WHITE BLOOD COUNT 6.3 K/mm3 (4.0-10.0)
[2019-05-15 14:59] LABS: PH,URINE 8.5 (5.0-8.0); URINE APPEARANCE TURBID; URINE BILIRUBIN NEGATIVE (NEGATIVE); URINE COLOR YELLOW; URINE GLUCOSE (UA) NEGATIVE (NEGATIVE); URINE KETONE NEGATIVE (NEGATIVE); URINE LEUK ESTERASE NEGATIVE (NEGATIVE); URINE NITRITE NEGATIVE (NEGATIVE); URINE PROTEIN NEGATIVE (NEGATIVE)
[2019-05-15 15:15] LABS: ALBUMIN 3.2 g/dl (3.4-5.0); BILIRUBIN,TOTAL 0.3 mg/dL (0.2-1); BLOOD UREA NITROGEN 9.1 mg/dL (7-18); CREATININE 0.8 mg/dL (0.55-1.3); POTASSIUM 3.9 mmol/L (3.5-5.1); TOT PROT 6.7 g/dl (6.4-8.2)
[2019-05-15] MEDS ORDERED: ACETAMINOPHEN 1000 MG/100 ML VIAL (NON FORMULARY) IVPB ONE (16:13)
--- NOTE | 2019-05-15 16:18 | PDOC ---
*Physical Exam - Vital Signs Last Vital Signs Temp Pulse Resp BP Pulse Ox 98.2 F 69 20 131/72 100 05/15/19 13:39 05/15/19 13:39 05/15/19 13:39 05/15/19 13:39 05/15/19 13:39 ED Treatment Course - LABORATORY CBC & Chemistry Diagram: 05/15/19 14:45 05/15/19 14:45 - ADDITIONAL ORDERS Additional order review: Laboratory Results 05/15/19 05/15/19 05/15/19 16:07 14:45 14:45 Sodium Potassium Chloride Carbon Dioxide Anion Gap BUN Creatinine Est GFR (CKD-EPI)AfAm Est GFR (CKD-EPI)NonAf POC Glucometer 82 Random Glucose Calcium Total Bilirubin AST ALT Alkaline Phosphatase Total Protein Albumin Urine Color Yellow Urine Appearance Turbid Urine pH 8.5 H Ur Specific [place] 1.023 Urine Protein Negative Urine Glucose (UA) Negative Urine Ketones Negative Urine Blood Negative Urine Nitrite Negative Urine Bilirubin Negative Urine Urobilinogen 1.0 Ur Leukocyte Esterase Negative Urine HCG, Qual Negative 05/15/19 14:45 Sodium 142 Potassium 3.9 Chloride 107 Carbon Dioxide 29 Anion Gap 6 L BUN 9.1 Creatinine 0.8 Est GFR (CKD-EPI)AfAm 106.13 Est GFR (CKD-EPI)NonAf 91.57 POC Glucometer Random Glucose 94 Calcium 9.0 Total Bilirubin 0.3 AST 13 L ALT 20 Alkaline Phosphatase 71 Total Protein 6.7 Albumin 3.2 L Urine Color Urine Appearance Urine pH Ur Specific [place] Urine Protein Urine Glucose (UA) Urine Ketones Urine Blood Urine Nitrite Urine Bilirubin Urine Urobilinogen Ur Leukocyte Esterase Urine HCG, Qual 05/15/19 05/15/19 16:07 14:45 RBC 3.83 MCV 91.6 MCHC 32.8 RDW 13.5 MPV 8.2 Neutrophils % 56.4 Lymphocytes % 29.5 D Monocytes % 9.5 Eosinophils % 4.0 D Basophils % 0.6 POC Glucometer 82 - Medications Given in the ED: ED Medications Discontinued Medications Generic Name Dose Route Start Last Admin Trade Name Freq PRN Reason Stop Dose Admin Sodium Chloride 1,000 mls @ 1,000 mls/hr 05/15/19 14:23 05/15/19 14:45 Normal Saline - IV 05/15/19 15:22 1,000 mls/hr ASDIR STA Administration Morphine Sulfate 4 mg 05/15/19 14:22 05/15/19 14:55 Morphine Injection - IVPUSH 05/15/19 14:23 4 mg ONCE ONE Administration Ondansetron HCl 4 mg 05/15/19 14:23 05/15/19 14:50 Zofran Injection IVPUSH 05/15/19 14:24 4 mg ONCE ONE Administration Medical Decision Making - Medical Decision Making 05/15/19 16:14 Called to room 9A by RN. Patient was initially a vertical patient, being seen for abd pain. She was going to ultrasound for imaging, fell onto her buttocks. She was placed in a wheelchair, at which point she started to slump over, then have generalized tonic-clonic activity. She is awake and alert now, answering questions. She states she has prior history of seizures, last one was 15 years ago. She used to f/u at [facility]. She has not been on meds in many years. She denies recent fevers, but states she has had poor sleep due to abd pain. EKG done, NSR 65 bpm. Will cont to monitor. Will d/w neuro.
[2019-05-15] MEDS ORDERED: ACETAMINOPHEN INJECTION 100 ML IVPB ONE (16:21)
--- NOTE | 2019-05-15 16:34 | PDOC ---
*Physical Exam - Vital Signs Last Vital Signs Temp Pulse Resp BP Pulse Ox 98.2 F 79 20 141/87 100 05/15/19 13:39 05/15/19 16:18 05/15/19 16:18 05/15/19 16:18 05/15/19 16:18 - Physical Exam Comments: 05/15/19 16:30 Sign-out received from outgoing ER provider Bipin. Pt interviewed and examined. Ancillary studies reviewed. During sign out was informed that patient had fallen on the way to CT and seized. Patient fell onto her buttocks, denies trauma to head or LOC. Discussed case with on-call neuro MD Dumont, who agrees patient does not need anything but supportive/conservative measures (rest, sufficient po intake) at this time for her single episode of seizure activity. Patient is stable to f/u closely in office this week with Dr. Dumont. At this time awaiting US results to evaluate chief complain of abd pain. 05/15/19 20:53 US results negative. Patient reassessed, at this time she reports feeling better and is ready to go home. Patient to f/u with Dr. Gonzalez and Dr. Dumont. Strict return precautions given. ED Treatment Course - LABORATORY CBC & Chemistry Diagram: 05/15/19 14:45 05/15/19 14:45 - ADDITIONAL ORDERS Additional order review: Laboratory Results 05/15/19 05/15/19 05/15/19 16:07 14:45 14:45 Sodium Potassium Chloride Carbon Dioxide Anion Gap BUN Creatinine Est GFR (CKD-EPI)AfAm Est GFR (CKD-EPI)NonAf POC Glucometer 82 Random Glucose Calcium Total Bilirubin AST ALT Alkaline Phosphatase Total Protein Albumin Urine Color Yellow Urine Appearance Turbid Urine pH 8.5 H Ur Specific [place] 1.023 Urine Protein Negative Urine Glucose (UA) Negative Urine Ketones Negative Urine Blood Negative Urine Nitrite Negative Urine Bilirubin Negative Urine Urobilinogen 1.0 Ur Leukocyte Esterase Negative Urine HCG, Qual Negative 05/15/19 14:45 Sodium 142 Potassium 3.9 Chloride 107 Carbon Dioxide 29 Anion Gap 6 L BUN 9.1 Creatinine 0.8 Est GFR (CKD-EPI)AfAm 106.13 Est GFR (CKD-EPI)NonAf 91.57 POC Glucometer Random Glucose 94 Calcium 9.0 Total Bilirubin 0.3 AST 13 L ALT 20 Alkaline Phosphatase 71 Total Protein 6.7 Albumin 3.2 L Urine Color Urine Appearance Urine pH Ur Specific [place] Urine Protein Urine Glucose (UA) Urine Ketones Urine Blood Urine Nitrite Urine Bilirubin Urine Urobilinogen Ur Leukocyte Esterase Urine HCG, Qual 05/15/19 05/15/19 16:07 14:45 RBC 3.83 MCV 91.6 MCHC 32.8 RDW 13.5 MPV 8.2 Neutrophils % 56.4 Lymphocytes % 29.5 D Monocytes % 9.5 Eosinophils % 4.0 D Basophils % 0.6 POC Glucometer 82 - Medications Given in the ED: ED Medications Discontinued Medications Generic Name Dose Route Start Last Admin Trade Name Benji PRN Reason Stop Dose Admin Acetaminophen 1,000 mg 05/15/19 16:13 05/15/19 16:20 Ofirmev Injection - IVPB 05/15/19 16:14 1,000 mg ONCE ONE Administration Sodium Chloride 1,000 mls @ 1,000 mls/hr 05/15/19 14:23 05/15/19 14:45 Normal Saline - IV 05/15/19 15:22 1,000 mls/hr ASDIR STA Administration Morphine Sulfate 4 mg 05/15/19 14:22 05/15/19 14:55 Morphine Injection - IVPUSH 05/15/19 14:23 4 mg ONCE ONE Administration Ondansetron HCl 4 mg 05/15/19 14:23 05/15/19 14:50 Zofran Injection IVPUSH 05/15/19 14:24 4 mg ONCE ONE Administration *DC/Admit/Observation/Transfer Diagnosis at time of Disposition: Seizure Abdominal pain Qualifiers: Abdominal location: periumbilical Qualified Code(s): R10.33 - Periumbilical pain - Discharge Dispostion Disposition: HOME Condition at time of disposition: Stable Decision to Admit order: No - Referrals Referrals: Wagner Dumont MD [Staff Physician] - Juan Manuel Gonzalez MD [Staff Physician] - - Patient Instructions Printed Discharge Instructions: DI for Postoperative Pain, DI for Seizure Disorder -- Adult Additional Instructions: As discussed, please get plenty of rest and fluids and follow up with Dr. Gonzalez for evaluation of your post-surgical pain. You MUST call Dr. Dumont TOMORROW AFTER 10 AM to schedule an appointment in his office for this week. You may reach his office at [phone]. Dial extension [phone] for his press assistant Nichol in order to get you scheduled for an appointment this week. If you develop any fever, persistent vomiting, diarrhea, chills, headache, dizziness, weakness, slurred speech, difficulty walking, or ANY new or worsening symptoms, please return to the ER immediately . - Post Discharge Activity Forms/Work/School Notes: Back to Work
--- NOTE | 2019-05-15 17:00 | RAPID ---
Physical Examination Vital Signs: Vital Signs Temperature 98.2 F 05/15/19 13:39 Pulse Rate 79 05/15/19 16:18 Respiratory Rate 20 05/15/19 16:18 Blood Pressure 141/87 05/15/19 16:18 O2 Sat by Pulse Oximetry (%) 100 05/15/19 16:18 Labs: CBC, BMP 05/15/19 14:45 05/15/19 14:45 Rapid Response - Rapid Response Assessment: Subjective: Rapid response called overhead at 15:54. director call center sales team responded immediately. Upon arrival, Pt was sitting upright in a wheel chair. Alerted by hospital staff that patient fell while ambulating. Objective: HR 90, O2 Sat 84% on Room Air While seated upright in a wheel chair, patient began to have convulsions that began suddenly causing her to fall to the ground, landing on hrer tail with her head in the seat of the chair; She was then slowly lowered to the ground and placed on a pillow. Unable to perform further examination as patient continued to have convulsions. A/P #Seizure -Sudden onset convulsion that lasted approx 30 seconds -Placed on stretcher and immediately rushed to ED. -Keep head rotated to the left to prevent aspiration -Placed on supplemental O2, SpO2 measured at 98% -Further management as per ED
[2019-05-15 18:28] VITALS: TEMP 98.3
[2019-05-15 19:24] VITALS: PULSE 60
[2019-05-15 21:10] VITALS: BP 126/90
--- NOTE | 2019-05-16 10:33 | EKG ---
Test Reason : Blood Pressure : / mmHG Vent. Rate : 065 BPM Atrial Rate : 065 BPM P-R Int : 140 ms QRS Dur : 070 ms QT Int : 410 ms P-R-T Axes : 060 047 045 degrees QTc Int : 426 ms NORMAL SINUS RHYTHM NORMAL ECG WHEN COMPARED WITH ECG OF 02-APR-2019 22:48, NO SIGNIFICANT CHANGE WAS FOUND Confirmed by ED POP MD ([id number]) on 05/16/2019 10:33:01 AM Referred By: Confirmed By:ED POP MD
== END 2019-05-15 21:27 | disposition home or self-care (01) ==
LOC: JER 13:19
PROC: 3E0337Z Introduction of Electrolytic and Water Balance Substance into Peripheral Vein, Percutaneous Approach (ICD-10-PCS; principal; 2019-05-15)
PROC: 3E033NZ Introduction of Analgesics, Hypnotics, Sedatives into Peripheral Vein, Percutaneous Approach (ICD-10-PCS; 2019-05-15)
PROC: 3E033NZ Introduction of Analgesics, Hypnotics, Sedatives into Peripheral Vein, Percutaneous Approach (ICD-10-PCS; 2019-05-15)
PROC: 3E033GC Introduction of Other Therapeutic Substance into Peripheral Vein, Percutaneous Approach (ICD-10-PCS; 2019-05-15)
DX: R56.9 Unspecified convulsions (principal); R10.33 Periumbilical pain; Z86.69 Personal history of other diseases of the nervous system and sense organs
CPT/HCPCS: 36415; 76705-TC; 80053; 81003; 82962; 84703; 85025; 93005; 93010; 96361; 96374; 96375; 99285-25; J0131; J7030

== ENCOUNTER 2019-08-07 15:26 | Emergency (ER) | payer OTHER ==
[2019-08-07 15:41] VITALS: TEMP 98; BMI 26.2
--- NOTE | 2019-08-07 18:15 | PDOC ---
History of Present Illness - General Chief Complaint: Pain Stated Complaint: BELLY BUTTON PAIN Time Seen by Provider: 08/07/19 16:46 History Source: Patient Exam Limitations: No Limitations - History of Present Illness Initial Comments: 08/07/19 18:15 Patient is a 43-year-old female with past medical history of seizure not on meds , status post cholecystectomy 2 months ago, c/o abdominal pain which started in the umbilicus then radiated to the lower abdomen since last night. Pain has been intermittent 7/10, crampy like which is worse with movement and bending. She has taken ibuprofen x2 today without any relief of symptoms. Symptoms now associated with nausea, vomiting last time was 1 pm, anorexia, fever this morning at 6am. LMP 1 week ago. Patient states that she is on infertility treatment and is on Clomid currently. States even though she had menstruation she has been in the past with a menstruation. Patient states she had seen her TASTE TESTER doctor and was told that she had a cyst and does not know if it got any bigger. PMD: Dr. Rivas Surgery: Dr. Gonzalez PMHX: as above PSOCHX: neg etoh, cig, drug GENERAL/CONSTITUTIONAL: [(+) fever or chills. No weakness. No weight change.] HEAD, EYES, EARS, NOSE AND THROAT: [No change in vision. No ear pain or discharge. No sore throat.] CARDIOVASCULAR: [No chest pain or shortness of breath.] RESPIRATORY: [No cough, wheezing, or hemoptysis.] GASTROINTESTINAL: [(+) nausea, vomiting, (-) diarrhea or constipation. No rectal bleeding.] GENITOURINARY: [No dysuria, frequency, or change in urination.] MUSCULOSKELETAL: [No joint or muscle swelling or pain. No neck or back pain.] SKIN AND BREASTS: [No rash or easy bruising.] NEUROLOGIC: [No headache, vertigo, loss of consciousness, or loss of sensation.] PSYCHIATRIC: [No depression or anxiety.] ENDOCRINE: [No increased thirst. No abnormal weight change.] HEMATOLOGIC/LYMPHATIC: [No anemia, easy bleeding, or history of blood clots.] ALLERGIC/IMMUNOLOGIC: [No hives or skin allergy. No latex allergy.] GENERAL: [The patient is awake, alert, and fully oriented, in no acute distress. ] HEAD: [Normal with no signs of trauma.] EYES: [Pupils equal, round and reactive to light, extraocular movements intact, sclera anicteric, conjunctiva clear.] ENT: [Ears normal, nares patent, oropharynx clear without exudates. Moist mucous membranes.] NECK: [Normal range of motion, supple without lymphadenopathy, JVD, or masses.] LUNGS: [Breath sounds equal, clear to auscultation bilaterally. No wheezes, and no crackles.] HEART: [Regular rate and rhythm, normal S1 and S2 without murmur, rub.] ABDOMEN: [Soft, (+) tenderness in the lower abd most in the RLQ, normoactive bowel sounds. (+) guarding, (+) rebound. No masses.] EXTREMITIES: [Normal range of motion, no edema. No clubbing or cyanosis. No cords, erythema, or tenderness.] NEUROLOGICAL: [Cranial nerves II through XII grossly intact. Normal speech, normal gait.] PSYCH: [Normal mood, normal affect.] SKIN: [Warm, Dry, normal turgor, no rashes or lesions noted.] Past History - Past Medical History Allergies/Adverse Reactions: Allergies Allergy/AdvReac Type Severity Reaction Status Date / Time No Known Allergies Allergy Verified 08/07/19 15:40 Home Medications: Ambulatory Orders Docusate Sodium [Colace -] 100 mg PO PRN 05/15/19 Anemia: No Cancer: No Cardiac Disorders: No CVA: No COPD: No Seizures: Yes - Surgical History Abdominal Surgery: Yes - Immunization History Td Vaccination: Yes Immunization Up to Date: Yes - Psycho Social/Smoking Cessation Hx Smoking Status: No Smoking History: Never smoked Have you smoked in the past 12 months: No Number of Cigarettes Smoked Daily: 0 Hx Alcohol Use: No Drug/Substance Use Hx: No Substance Use Type: None *Physical Exam - Vital Signs Last Vital Signs Temp Pulse Resp BP Pulse Ox 98 F 73 18 124/61 100 08/07/19 15:38 08/07/19 15:38 08/07/19 15:38 08/07/19 15:38 08/07/19 15:38 ED Treatment Course - LABORATORY CBC & Chemistry Diagram: 08/07/19 18:59 08/07/19 18:59 Medical Decision Making - Medical Decision Making 08/07/19 18:15 Patient is a 43-year-old female with past medical history of seizure not on meds , status post cholecystectomy 2 months ago, c/o abdominal pain which started in the umbilicus then radiated to the lower abdomen since last night. Pain has been intermittent 7/10, crampy like which is worse with movement and bending. She has taken ibuprofen x2 today without any relief of symptoms. Symptoms now associated with nausea, vomiting last time was 1 pm, anorexia, fever this morning at 6am. LMP 1 week ago. Patient states that she is on infertility treatment and is on Clomid currently. States even though she had menstruation she has been in the past with a menstruation. Patient states she had seen her T[facility]E TE[facility] doctor and was told that she had a cyst and does not know if it got any bigger. Patient with abd pain with some rebound and guarding on physical exam concerns for appendicitis possibly perforation, versus ruptured ectopic, versus ruptured ovarian cyst Labs, Pain meds IV fluids CT abdomen pelvis Pelvic ultrasound if indicated. Labs reviewed noted beta hCG less than [address] scan of the abdomen. 08/07/19 23:20 Reason for Exam: abd pain Referring Physician: Patient Name: RENATO DOYLE THIS IS A PRELIMINARY REPORT FROM [facility] DATE OF SERVICE: 2019-08-07 21:12:33 IMAGES: [id number] EXAM: CT abdomen and pelvis without contrast and with contrast HISTORY:Abdomen pain COMPARISON: None. FINDINGS: Atelectasis and scarring in lung bases. No pleural effusions. Questionable tiny gas bubbles between the right hepatic lobe and the right abdominal wall on postcontrast image 40. They are likely artifacts as they are not seen on the precontrast images and are not appreciated on lung windows. Surgical changes related to prior cholecystectomy. Minimal residual edema in the anterior abdominal wall. The liver, pancreas, adrenal glands, and spleen are unremarkable. Tiny left renal cyst. 2 mm nonobstructing bilateral intrarenal calculi. No ureteral calculi or hydronephrosis. No AAA. No evidence for diverticulitis, appendicitis, small bowel obstruction, or free air. Trace pelvic fluid. One or more of the following dose reduction techniques were used: automated exposure control, adjustment of the mA and/or kV according to patient size, use of iterative reconstructive technique. THIS DOCUMENT HAS BEEN ELECTRONICALLY SIGNED Edgar Delaney MD 08/07/2019 22:39 EST M.D. Please call [facility] [phone] with questions. No findings on CT scan will send patient for ultrasound rule out torsion. INTERPRETING RADIOLOGIST: Edgar Delaney MD Electronically Signed: Aug 07, 2019 10:41PM EST 08/08/19 00:40 Patient Full Name: VIVEK GROSS Patient Accession No: [id number] Patient : 1975 Reason for Exam: lower abd pain Referring Physician: Patient Name: RENATO DOYLE THIS IS A PRELIMINARY REPORT FROM [facility] EXAM: Pelvic ultrasound, transabdominal and transvaginal with duplex of ovaries IMAGES: 51 DATE OF EXAM: 2019-08-07 23:45:46 REASON FOR EXAM: Lower abdomen pain COMPARISON: None. FINDINGS: The uterus and endometrial stripe appear normal. No large ovarian cysts. Duplex Ultrasound: Appropriate arterial and/or venous flow are noted in both ovaries, making torsion unlikely at this time. No significant free pelvic fluid. The appendix is not visualized. THIS DOCUMENT HAS BEEN ELECTRONICALLY SIGNED Edgar Delaney MD 08/08/2019 00:29 EST Gadiel. Please call [facility] [phone] with questions. INTERPRETING RADIOLOGIST: Edgar Delaney MD Electronically Signed: Aug 08, 2019 12:30AM EST Discussed reports with patient as above. There are no acute findings at this time. Will discharge patient with instructions to follow-up with her TASTE TESTER.. I discussed the physical exam findings, ancillary test results and final diagnoses with the patient. I answered all of the patient's questions. The patient was satisfied with the care received and felt comfortable with the discharge plan and treatment plan. The Patient agrees to follow up with the primary care physician within 24-72 hours. Discharge - Discharge Information Problems reviewed: Yes Clinical Impression/Diagnosis: Abdominal pain Qualifiers: Abdominal location: unspecified location Qualified Code(s): R10.9 - Unspecified abdominal pain Condition: Stable Disposition: HOME - Follow up/Referral - Patient Discharge Instructions Patient Printed Discharge Instructions: DI for Abdominal Pain-Adult Additional Instructions: Your Discharge Instructions: You must call primary care physician within 24 hours to arrange follow-up. Return to the Emergency Department with any new, persistent or worsening symptoms, for fever, chills, SOB, dizziness or any other concerning changes that may occur. Follow-up with your SEISMIC SURVEY ASSISTANT for further evaluation. Take Tylenol and Motrin for your pain as needed. - Post Discharge Activity Work/Back to School Note: Back to Work
[2019-08-07] MEDS ORDERED: morphine CARPU-JECT 4 MG/1 ML DISP.SYRIN IVPUSH ONE (18:25)
[2019-08-07] MEDS ORDERED: SODIUM CHLORIDE 0.9% 500 ML INFUS.BAG IV ONE (18:27)
[2019-08-07] MEDS ORDERED: ONDANSETRON 4 MG/2 ML VIAL IVPUSH ONE (18:27)
[2019-08-07 19:12] LABS: BASO % 0.5 % (0-2.0); EOS % 2.5 % (0-4.5); HEMATOCRIT 37.4 % (32.4-45.2); HEMOGLOBIN 12.2 GM/dL (10.7-15.3); LYMPH % 38.1 % (8-40); MCHC 32.5 g/dl (32.0-36.0); MEAN CELL VOLUME 92.1 fl (80-96); MEAN PLT VOLUME 8.8 fl (7.5-11.1); NEUT % 49.9 % (42.8-82.8); PLATELET COUNT 287 K/MM3 (134-434); RBC 4.05 M/mm3 (3.60-5.2); WHITE BLOOD COUNT 6.1 K/mm3 (4.0-10.0)
[2019-08-07 19:13] LABS: PH,URINE >= 9.0 (5.0-8.0); URINE APPEARANCE TURBID; URINE BILIRUBIN NEGATIVE (NEGATIVE); URINE COLOR YELLOW; URINE GLUCOSE (UA) NEGATIVE (NEGATIVE); URINE KETONE NEGATIVE (NEGATIVE); URINE LEUK ESTERASE NEGATIVE (NEGATIVE); URINE NITRITE NEGATIVE (NEGATIVE); URINE PROTEIN TRACE (NEGATIVE)
[2019-08-07 19:40] LABS: ALBUMIN 3.3 g/dl (3.4-5.0); BILIRUBIN,TOTAL 0.2 mg/dL (0.2-1); BLOOD UREA NITROGEN 11.3 mg/dL (7-18); CALCIUM 8.7 mg/dL (8.5-10.1); CREATININE 0.8 mg/dL (0.55-1.3); POTASSIUM 3.9 mmol/L (3.5-5.1); TOT PROT 7.2 g/dl (6.4-8.2)
[2019-08-07] MEDS ORDERED: morphine SULFATE 4 MG/ML VIAL ONE (20:19)
[2019-08-07] MEDS ORDERED: ONDANSETRON 4 MG/2 ML VIAL ONE (20:19)
[2019-08-08 03:23] VITALS: BP 123/64; PULSE 62
== END 2019-08-08 01:15 | disposition home or self-care (01) ==
LOC: JER 15:26
DX: I10 Essential (primary) hypertension (principal)
CPT/HCPCS: 36415; 74177-TC; 76830-TC; 76856-TC; 80053; 81003; 83690; 84702; 85025; 99282-25; Q9967

== ENCOUNTER 2019-09-18 22:00 | Emergency (ER) | payer OTHER ==
[2019-09-18 22:14] VITALS: TEMP 98.2; BMI 27.3
--- NOTE | 2019-09-19 01:30 | PDOC ---
History of Present Illness <Janis Mcmullen - Last Filed: 09/19/19 03:36> - General History Source: Patient Exam Limitations: No Limitations - History of Present Illness Initial Comments: 09/19/19 01:11 HPI: 43yo F PMH seizures, Cholecystectomy (May 2019), ovarian cyst, presenting with suprapubic pain and back pain for 1 day. Pain radiates to the bilateral back, is not relieved by Motrin / Tylenol, and is associated with nausea, no emeiss, soft non-bloody non-strained stool this AM, no urinary symptoms, no vaginal discharge, no malodorous urine, changes in frequency, dysuria. Of note, patient was seen in July 2019 for what she says are the same symptoms and had a negative TVUS and CTAP at that time. LMP was beginning of July. Doesn' t know status. NKDA Meds PMH: As above PSH: CCY, Csection SHx: No toxic habbit <Rome Mckeon - Last Filed: 09/19/19 03:38> - General Chief Complaint: Pain Stated Complaint: ABD/BACK PAIN Time Seen by Provider: 09/19/19 00:37 Past History <Janis Mcmullen - Last Filed: 09/19/19 03:36> - Past Medical History Anemia: No Cancer: No Cardiac Disorders: No CVA: No COPD: No Seizures: Yes - Surgical History Abdominal Surgery: Yes - Immunization History Td Vaccination: Yes Immunization Up to Date: Yes - Psycho Social/Smoking Cessation Hx Smoking Status: No Smoking History: Never smoked Have you smoked in the past 12 months: No Number of Cigarettes Smoked Daily: 0 Hx Alcohol Use: No Drug/Substance Use Hx: No Substance Use Type: None <Rome Mckeon - Last Filed: 09/19/19 03:38> - Past Medical History Allergies/Adverse Reactions: Allergies Allergy/AdvReac Type Severity Reaction Status Date / Time No Known Allergies Allergy Verified 08/07/19 15:40 Home Medications: Ambulatory Orders Docusate Sodium [Colace -] 100 mg PO PRN 05/15/19 Review of Systems - Review of Systems Able to Perform ROS?: Yes Is the patient limited Ukrainian proficient: Yes Constitutional: No: Chills, Fever HEENTM: No: Nose Congestion, Throat Pain Respiratory: No: Cough, Shortness of Breath, Productive cough Cardiac (ROS): No: Chest Pain, Irregular Heart Rate, Chest Tightness ABD/GI: No: Abdominal Distended, Constipated, Diarrhea, Nausea, Poor Appetite, Poor Fluid Intake, Vomiting : No: Burning, Dysuria, Frequency, Hematuria, Incontinence Musculoskeletal: No: Back Pain, Muscle Pain, Muscle Weakness Integumentary: No: Dryness, Pruritus, Rash Neurological: No: Headache, Numbness, Tingling, Weakness Psychiatric: No: Stressors, Change in Appetite Endocrine: No: Increased Thirst, Increased Urine Hematologic/Lymphatic: No: Anemia, Blood Clots, Easy Bleeding All Other Systems: Reviewed and Negative <Rome Mckeon - Last Filed: 09/19/19 03:38> *Physical Exam - Vital Signs Last Vital Signs Temp Pulse Resp BP Pulse Ox 98.2 F 83 20 127/62 98 09/18/19 22:09 09/18/19 22:09 09/18/19 22:09 09/18/19 22:09 09/18/19 22:09 <Janis Mcmullen - Last Filed: 09/19/19 03:36> - Vital Signs Last Vital Signs Temp Pulse Resp BP Pulse Ox 98.2 F 83 20 127/62 98 09/18/19 22:09 09/18/19 22:09 09/18/19 22:09 09/18/19 22:09 09/18/19 22:09 - Physical Exam 09/19/19 01:13 Vitals reviewed, AFVSS GEN: Well appearing, appears stated age, NAD, comfortable. AAOx3. HEENT: NCAT, EOMI, PERRL. Sclera anicteric, noninjected. No facial asymmetry. Moist mucous membranes. Normal voice. Trachea midline. CV: RRR, S1/S2, no murmurs / rubs / gallops appreciated. LUNG: CTAB, normal work of breathing. No wheezes, rales, rhonchi. No cough. Speaking full sentences. GI: Soft, +TTP suprapubic, ND, +BS, no guarding, no rebound. No masses. Neg CVAT b/l. EXTREMITIES: 2+ distal pulses. No LE edema. No obvious deformities of all extremities. SKIN: Warm, dry, no rashes appreciated, non-jaundiced. PSYCH: Normal mood and affect. Cooperative and appropriate. NEURO: CN grossly intact. Moving all extremities well. Normal strength and sensation grossly. <Rome Mckeon - Last Filed: 09/19/19 03:38> ED Treatment Course - LABORATORY CBC & Chemistry Diagram: 09/19/19 01:40 09/19/19 01:40 - ADDITIONAL ORDERS Additional order review: Laboratory Results 09/19/19 09/19/19 09/19/19 01:40 01:40 01:40 Sodium Potassium Chloride Carbon Dioxide Anion Gap BUN Creatinine Est GFR (CKD-EPI)AfAm Est GFR (CKD-EPI)NonAf Random Glucose Calcium Total Bilirubin AST ALT Alkaline Phosphatase Creatine Kinase Troponin I Total Protein Albumin Lipase 123 Urine Color Yellow Urine Appearance Slightly cloudy Urine pH 7.0 D Ur Specific [place] 1.025 Urine Protein Trace Urine Glucose (UA) Negative Urine Ketones Trace Urine Blood Negative Urine Nitrite Negative Urine Bilirubin Negative Urine Urobilinogen 1.0 Ur Leukocyte Esterase Negative Urine HCG, Qual Negative 09/19/19 09/19/19 01:40 01:40 Sodium 140 Potassium 3.9 Chloride 107 Carbon Dioxide 28 Anion Gap 5 L BUN 12.0 Creatinine 0.7 Est GFR (CKD-EPI)AfAm 124.73 Est GFR (CKD-EPI)NonAf 107.62 Random Glucose 98 Calcium 9.3 Total Bilirubin 0.2 AST 18 ALT 27 Alkaline Phosphatase 82 Creatine Kinase 91 Troponin I < 0.02 Total Protein 7.0 Albumin 3.2 L Lipase Urine Color Urine Appearance Urine pH Ur Specific [place] Urine Protein Urine Glucose (UA) Urine Ketones Urine Blood Urine Nitrite Urine Bilirubin Urine Urobilinogen Ur Leukocyte Esterase Urine HCG, Qual 09/19/19 01:40 RBC 4.05 MCV 92.1 MCHC 33.0 RDW 13.8 MPV 7.9 D Neutrophils % 56.2 Lymphocytes % 28.9 D Monocytes % 10.6 H Eosinophils % 3.9 Basophils % 0.4 - RADIOLOGY Radiology Studies Ordered: Category Date Time Status TRANSVAGINAL ULTRASOUND US [US] Stat Ultrasound 09/19/19 01:41 Taken - Medications Given in the ED: ED Medications Discontinued Medications Generic Name Dose Route Start Last Admin Trade Name Freq PRN Reason Stop Dose Admin Acetaminophen 1,000 mg 09/19/19 03:21 09/19/19 03:28 Ofirmev Injection - IVPB 09/19/19 03:22 1,000 mg ONCE ONE Administration Sodium Chloride 1,000 ml 09/19/19 02:17 09/19/19 02:28 Normal Saline - IV 09/19/19 02:18 1,000 ml ONCE ONE Administration <Janis Mcmullen - Last Filed: 09/19/19 03:36> - LABORATORY CBC & Chemistry Diagram: 09/19/19 01:40 09/19/19 01:40 <Rome Mckeon - Last Filed: 09/19/19 03:38> Medical Decision Making - Medical Decision Making 09/19/19 01:14 43yo F PMH seizures, Cholecystectomy (May 2019), ovarian cyst, presenting with suprapubic pain and back pain for 1 day. - CBC, CMP, Lipase - UA, UCX, Beta-HCG - TVUS 09/19/19 02:18 - CBC wnl, no leukocytosis or anemia - UA without UTI 09/19/19 03:38 - Remaining labs wnl - TVUS unremarkable Dispo: Home <Rome Mckeon - Last Filed: 09/19/19 03:38> Discharge - Discharge Information Problems reviewed: Yes - Admission No <Janis Mcmullen - Last Filed: 09/19/19 03:36> - Discharge Information Problems reviewed: Yes - Admission No <Rome Mckeon - Last Filed: 09/19/19 03:38> - Discharge Information Clinical Impression/Diagnosis: Gas pain Condition: Good Disposition: HOME - Follow up/Referral Referrals: Hernandez Bee MD [Staff Physician] - Jassi Wang MD [Staff Physician] - - Patient Discharge Instructions Patient Printed Discharge Instructions: Eating a Diet Rich in Fruits and Vegetables - Post Discharge Activity Work/Back to School Note: Back to Work
[2019-09-19 02:00] LABS: URINE APPEARANCE Slightly Cloudy; URINE BILIRUBIN Negative (NEGATIVE); URINE COLOR Yellow; URINE GLUCOSE (UA) Negative (NEGATIVE); URINE KETONE Trace (NEGATIVE); URINE LEUK ESTERASE Negative (NEGATIVE); URINE NITRITE Negative (NEGATIVE); URINE PROTEIN Trace (NEGATIVE)
[2019-09-19 02:02] LABS: BASO % 0.4 % (0-2.0); EOS % 3.9 % (0-4.5); HEMATOCRIT 37.3 % (32.4-45.2); HEMOGLOBIN 12.3 GM/dL (10.7-15.3); LYMPH % 28.9 % (8-40); MCH 30.4 pg (25.7-33.7); MEAN CELL VOLUME 92.1 fl (80-96); MEAN PLT VOLUME 7.9 fl (7.5-11.1); MONO % 10.6 % (3.8-10.2); NEUT % 56.2 % (42.8-82.8); PLATELET COUNT 302 K/MM3 (134-434); RBC 4.05 M/mm3 (3.60-5.2); RDW 13.8 % (11.6-15.6); WHITE BLOOD COUNT 7.3 K/mm3 (4.0-10.0)
[2019-09-19] MEDS ORDERED: SODIUM CHLORIDE 0.9% 500 ML INFUS.BAG IV ONE (02:17)
--- NOTE | 2019-09-19 02:19 | PDOC ---
Documentation entered by Keri Villegas SCRIBE, acting as scribe for Janis Mcmullen MD. Janis Mcmullen MD: This documentation has been prepared by the jaymeibeBakari Lincy, SCRIBE, under my direction and personally reviewed by me in its entirety. I confirm that the documentation accurately reflects all work, treatment, procedures, and medical decision making performed by me. Attending Attestation - Resident Resident Name: MikeRome - ED Attending Attestation I have performed the following: I have examined & evaluated the patient, The case was reviewed & discussed with the resident, I agree w/resident's findings & plan - HPI HPI: 09/19/19 01:57 The patient is a 43-year-old female with a past medical history significant for cholecystectomy, ovarian cyst, and seizures who presents to the emergency department with suprapubic pain radiating bilaterally to the lower back since last night. The patient reports taking Motrin and Tylenol for the symptoms without relief. The patient reports associated symptoms of nausea and soft stool. Otherwise denies fever, chills, dysuria, hematuria, frequency or urgency , malodor, or vaginal discharge. The patient reports a history of UTI, however reports the symptoms arent similar. The patient reports a similar episode last month, was seen in the ED, with a negative CT and u/s workup. The patient reports an additional symptom of a brief episode of chest tightness and shortness of breath this morning while walking, which lasted for 3 minutes, before self-resolving. LMP: Beginning of July, regular. - Physicial Exam PE: 09/19/19 02:00 GENERAL: Awake, alert, and fully oriented, in no acute distress HEAD: No signs of trauma EYES: PERRLA, EOMI, sclera anicteric, conjunctiva clear ENT: Auricles normal inspection, hearing grossly normal, nares patent, oropharynx clear without exudates. Moist mucosa NECK: Normal ROM, supple, no lymphadenopathy, JVD, or masses LUNGS: Breath sounds equal, clear to auscultation bilaterally. No wheezes, and no crackles HEART: Regular rate and rhythm, normal S1 and S2, no murmurs, rubs or gallops ABDOMEN: +Minimal tenderness to the umbilical and lower quadrants. Soft, normoactive bowel sounds. No guarding, no rebound. EXTREMITIES: Normal range of motion, no edema. No clubbing or cyanosis. No cords, erythema, or tenderness NEUROLOGICAL: Cranial nerves II through XII grossly intact. Normal speech, normal gait SKIN: Warm, Dry, normal turgor, no rashes or lesions noted. - Medical Decision Making 09/19/19 02:18 Pt comes wtih lower abd and periumbilical pain. She has normal CBC and normal UA; only ketones. She will be hydrated Chem pending 09/19/19 03:33 Referring Physician: LESLIE POWELL Patient Name: RENATO DOYLE THIS IS A PRELIMINARY REPORT FROM [facility] DATE OF SERVICE: 2019-09-19 01:45:15 IMAGES: 35 EXAM: TRANSVAGINAL ULTRASOUND AND DUPLEX SCAN PELVIS, COMPLETE No ovarian torsion bilaterally. Color flow with appropriate arterial and/or venous waveforms. No free fluid. Normal uterus. Endometrial stripe complex 10 mm thick 09/19/19 03:33 Abdominal pain,NOS; likely gas pain. Follow with [facility] outpatient 09/19/19 03:34 CXR normal Pt will be discharged
[2019-09-19 02:28] LABS: ALBUMIN 3.2 g/dl (3.4-5.0); BILIRUBIN,TOTAL 0.2 mg/dL (0.2-1); CALCIUM 9.3 mg/dL (8.5-10.1); CREATININE 0.7 mg/dL (0.55-1.3); POTASSIUM 3.9 mmol/L (3.5-5.1)
[2019-09-19] MEDS ORDERED: ACETAMINOPHEN 1000 MG/100 ML VIAL (NON FORMULARY) IVPB ONE (03:21)
[2019-09-19] MEDS ORDERED: ACETAMINOPHEN INJECTION 100 ML IVPB ONE (03:22)
[2019-09-19] MEDS ORDERED: MAG HYDROX/AL HYDROX/SIMETH 30 ML UNIT-DOSE CUP PO ONE (03:34)
[2019-09-19 03:42] VITALS: BP 113/50; PULSE 73
[2019-09-19] MEDS ORDERED: MAG HYDROX/AL HYDROX/SIMETH 30 ML UNIT-DOSE CUP ONE (03:43)
--- NOTE | 2019-09-19 13:51 | EKG ---
Test Reason : Blood Pressure : / mmHG Vent. Rate : 071 BPM Atrial Rate : 071 BPM P-R Int : 144 ms QRS Dur : 086 ms QT Int : 388 ms P-R-T Axes : 055 028 032 degrees QTc Int : 421 ms NORMAL SINUS RHYTHM WITH SINUS ARRHYTHMIA NORMAL ECG WHEN COMPARED WITH ECG OF 15-MAY-2019 16:04, NO SIGNIFICANT CHANGE WAS FOUND Confirmed by Devendra Alvarado ([id number]) on 09/19/2019 1:51:34 PM Referred By: Confirmed By:Devendra Alvarado
== END 2019-09-19 03:55 | disposition home or self-care (01) ==
LOC: JER 22:00
PROC: 3E033NZ Introduction of Analgesics, Hypnotics, Sedatives into Peripheral Vein, Percutaneous Approach (ICD-10-PCS; principal; 2019-09-18)
DX: R14.1 Gas pain (principal); Z86.69 Personal history of other diseases of the nervous system and sense organs; Z90.49 Acquired absence of other specified parts of digestive tract
CPT/HCPCS: 36415; 71045-TC-FY; 76830-TC; 80053; 81003; 82550; 83690; 84484; 84703; 85025; 87086; 93005; 93010; 96374; 99283-25; J0131

== ENCOUNTER 2021-07-02 20:23 | Emergency (ER) | payer OTHER ==
[2021-07-02 20:37] VITALS: TEMP 98.1; BMI 36.9
[2021-07-02] MEDS ORDERED: FAMOTIDINE 20 MG/50 ML IVPB 20 MG/50 ML MG IVPB ONE ×2 (21:38→22:12)
[2021-07-02] MEDS ORDERED: ACETAMINOPHEN 1000 MG/100 ML VIAL IVPB ONE (21:39)
[2021-07-02] MEDS ORDERED: ACETAMINOPHEN INJECTION 100 ML IVPB ONE (22:12)
[2021-07-02 22:41] LABS: BASO % 0.6 % (0-2.0); EOS % 2.4 % (0-4.5); HEMATOCRIT 35.2 % (32.4-45.2); HEMOGLOBIN 11.7 GM/dL (10.7-15.3); LYMPH % 30.6 % (8-40); MCH 30.2 pg (25.7-33.7); MCHC 33.3 g/dl (32.0-36.0); MEAN CELL VOLUME 90.7 fl (80-96); MEAN PLT VOLUME 7.4 fl (7.5-11.1); MONO % 10.5 % (3.8-10.2); NEUT % 55.9 % (42.8-82.8); PLATELET COUNT 330 10^3/uL (134-434); RBC 3.89 M/mm3 (3.60-5.2); RDW 13.7 % (11.6-15.6); WHITE BLOOD COUNT 5.5 K/mm3 (4.0-10.0)
[2021-07-02 23:06] LABS: CHLORIDE 107 mmol/L (98-107); SODIUM 140 mmol/L (136-145)
[2021-07-02 23:08] LABS: CALCIUM 8.9 mg/dL (8.5-10.1)
[2021-07-02 23:09] LABS: ALBUMIN 2.9 g/dl (3.4-5.0); ANION GAP 1 MMOL/L (8-16); BLOOD UREA NITROGEN 6.4 mg/dL (7-18); CO2 32 mmol/L (21-32); GLUCOSE,RANDOM 97 mg/dL (74-106); LIPASE 66 U/L (73-393)
[2021-07-02 23:11] LABS: CREATININE 0.8 mg/dL (0.55-1.3); SGOT/AST 15 U/L (15-37); SGPT/ALT 24 U/L (13-61)
[2021-07-02 23:13] LABS: BILIRUBIN,TOTAL 0.2 mg/dL (0.2-1)
[2021-07-02 23:14] LABS: ALK PHOS 73 U/L (45-117)
[2021-07-03 00:58] LABS: EPI CELLS 23 /uL (0-25.1); HYALINE CASTS 2 /uL (0-3.1); PH,URINE 5.5 (5.0-8.0); URINE APPEARANCE CLEAR; URINE BACTERIA 311 /uL (0-1359); URINE BILIRUBIN NEGATIVE (NEGATIVE); URINE COLOR YELLOW; URINE GLUCOSE (UA) NEGATIVE (NEGATIVE); URINE KETONE NEGATIVE (NEGATIVE); URINE LEUK ESTERASE NEGATIVE (NEGATIVE); URINE NITRITE NEGATIVE (NEGATIVE); URINE PROTEIN NEGATIVE (NEGATIVE); URINE RBC 6 /uL (0-23.9); URINE UROBILINOGEN 0.2 mg/dL (0.2-1.0); URINE WBC 19 /uL (0-25.8)
[2021-07-03 02:00] VITALS: BP 146/79; PULSE 60
== END 2021-07-03 02:03 | disposition home or self-care (01) ==
LOC: JER 20:23
PROC: 3E033NZ Introduction of Analgesics, Hypnotics, Sedatives into Peripheral Vein, Percutaneous Approach (ICD-10-PCS; principal; 2021-07-02)
PROC: 3E033GC Introduction of Other Therapeutic Substance into Peripheral Vein, Percutaneous Approach (ICD-10-PCS; 2021-07-02)
DX: R10.30 Lower abdominal pain, unspecified (principal); K57.92 Diverticulitis of intestine, part unspecified, without perforation or abscess without bleeding
CPT/HCPCS: 36415; 74176-TC; 76830-TC; 80053; 81003; 83690; 84702; 85025; 87086; 99285-25; J0131